=== PATIENT | female | born 1945 | race Caucasian/White ===

== ENCOUNTER 2018-05-28 04:41 | Inpatient (IN) ==
[2018-05-28] MEDS ORDERED: SODIUM CHLORIDE 0.9% 1000ML 500 ML IV ONE ×2 (04:58→06:17)
--- NOTE | 2018-05-28 05:15 | Emergency Department Note ---
ED Provider Note Name: Sheyla Street Age: 72 F Arrives Via: POV Informant: Pt CC: LLQ pain HPI: 72 female arrives for evaluation of LLQ pain. Patient with 48 hours worsening LLQ pain. Notes associated nausea and decreased appetite. Has not had BM in 48 hours which is unusual for her as she usually has one daily. Worse with movement. Better with rest. Notes this has never occurred previously. No trauma. No previous surgeries to abdomen (though notes may have had gallbladder out). She denies fevers, chills, shob, cp, syncope, diarrhea, rashes, back pain, headache, neck pain, leg swelling, nor other symptoms. No medications taken for this. ROS: See above HPI for pertinent positives & negatives. A total of 10 systems reviewed and were otherwise negative. Past Medical History: HTN, Hypothyroid, RA, Past Surgical History: Can't remember, maybe gallbladder Family History: Unsure if abdominal issues in family. Social History: Lives alone, no smoking, no drugs, no alcothol Home Medications: See Below Allergies PNC, Sulfa Physical: Vitals: BP 157/77, P 72, R 20, T 36.9, O2 100RA Exam: GENERAL: Patient is uncomfortable appearing and in moderate distress. EYES: No scleral icterus, unremarkable pupils. ENT: Mucous membranes moist, no nasal congestion. NECK: No masses appreciated, no meningismus, trachea is midline. RESPIRATORY: No dyspnea. Clear to auscultation and equal bilaterally. No wheeze, no rhonchi. CARDIOVASCULAR: Regular rate and rhythm. No murmurs, rubs, gallops appreciated. GASTROINTESTINAL: TTP over left lower quadrant, Abdomen soft, no peritonitis. Bowel sounds positive. No masses appreciated. BACK: No midline tenderness, no CVA tenderness EXTREMITIES: Normal motion all extremities, no cyanosis, no edema. NEUROLOGIC: Alert and oriented, no acute motor or sensory deficits, no focal weakness, cranial nerves grossly intact. SKIN: No rash, no jaundice, no diaphoresis. ED Course: Prior Medical Record, Triage/Nursing Notes, Medications, Allergies reviewed by Me Vital Signs: reviewed and remarkable for HTN Labs: Reviewed and remarkable for Blood in UA, Normal BMP, LFT, Lipase, CBC Interventions: Saline Lock, Fentanyl 50 mcg IV, Zofran 4mg IV, Morphine 6mg IV, NSS bolus 1 L IV, Nss bolus 500mL IV Imaging: [facility] Radiologist interpretation reviewed by me: "CT ABDOMEN & PELVIS With Contrast: 5 mm mid left ureteral stone with moderate hydronephrosis and delayed nephrogram indicating active obstruction No bowel obstruction. Minimal stool in the colon. Radiologist: Indio Nguyen MD" EKG: none Consults: Dr Mark will discuss with Morning hospitalist team Reassessments/Times: Multiple, continued left sided pain Blood pressure: Elevated - [place] to be Situation. Disposition: Hospitalist evaluation Differentials: Diverticulitis, Renal Colic, Colitis, UTI, Pyelonephritis, Perforation, Bowel obstruction amongst other pathologies. Medical Decision Making: Pleasant 72 yr old female with left lower quadrant pain over last few days. Very uncomfortable on arrival. Given Iv narcotics with continued pain. CT with mid ureteral stone on left with moderate hydronephrosis. Continued intractable pain and moderate hydro seems reasonable bringing in. UA with Nitrite but I elan pect this is blood related as does not seem infectious at this time. Cr OK as are other electrolytes. Hospitalist consulted for further management Impression: Left Ureteral Calculus Hydronephrosis of left kidney Intractable Abdominal Pain Dean Love MD Impression & Plan Left ureteral calculus, Hydronephrosis of left kidney, Intractable abdominal pain Past Med/Surg History Social History Feels Safe at Home: Yes Smoking Status: Former smoker Results & Data Vital Signs Vital Signs - 24 hr 05/28/18 04:44 05/28/18 06:07 Temperature 36.9 C Temperature Source Oral Sepsis Recent Fever Within 48 Hours No Sepsis Action Taken by Nursing No Action Required Pulse Rate 72 Pulse Rate [Right Finger] 87 Respiratory Rate 20 20 Blood Pressure 157/77 H Blood Pressure [Left Arm] 163/108 H Blood Pressure Mean 103 Blood Pressure Mean [Left Arm] 126 Blood Pressure Position Sitting Blood Pressure Position [Left Arm] Lying Pulse Oximetry 100 94 Oxygen Delivery Method Room Air Laboratory Data Result diagrams: 05/28/18 05:02 05/28/18 05:02 Lab Results 05/28/18 05/28/18 05/28/18 Range/Units 05:02 05:02 05:25 WBC 8.52 (4.8-10.8) K/uL RBC 4.67 (4.2-5.4) M/uL Hgb 15.6 (12.0-16.0) g/dL POC Hgb (12.0-16.0) g/dl Hct 44.2 (37-47) % POC Hct (37-47) % MCV 94.6 (80-100) fL MCH 33.4 (25-34) pg MCHC 35.3 (32-36) g/dL RDW Std Deviation 44.7 (36.4-46.3) fL RDW Coeff of Zina 13.1 (11.5-14.5) % Plt Count 250 (130-400) K/uL MPV 10.1 (7.4-10.4) fL Immature Gran % (Auto) 0.2 % Neut % (Auto) 68.8 % Lymph % (Auto) 20.7 % [place] % (Auto) 9.4 % Eos % (Auto) 0.5 % Baso % (Auto) 0.4 % Immature Gran # (Auto) 0.02 (0.00-0.02) K/uL Neut # (Auto) 5.87 (1.4-6.5) K/uL Lymph # (Auto) 1.76 (1.2-3.4) K/uL [place] # (Auto) 0.80 H (0.11-0.59) K/uL Eos # (Auto) 0.04 (0-0.5) K/uL Baso # (Auto) 0.03 (0-0.2) K/uL POC Sodium (135-144) mEq/L Sodium 141 (136-145) mmol/L POC Potassium (3.3-5.0) mEq/L Potassium 3.5 (3.5-5.1) mmol/L POC Chloride (101-112) mEq/L Chloride 107 (98-107) mmol/L Carbon Dioxide 24 (21-32) mmol/L POC Total CO2 (24-31) mEq/l Anion Gap 10.0 (3-11) POC Anion Gap (16-25) mmol/L POC BUN (7-18) mg/dl BUN 15 (7-18) mg/dl Creatinine 0.81 (0.6-1.2) mg/dl POC Creatinine (0.6-1.3) mg/dl Est Cr Clr Drug Dosing 50.7 ml/min Est GFR ( Amer) 82.9 Est GFR (Non-Af Amer) 71.5 BUN/Creatinine Ratio 19.1 (10-20) Glucose 112 H (70-99) mg/dl POC Glucose (other) (70-99) mg/dl Calcium 9.1 (8.5-10.1) mg/dl POC Ioniz Calcium Yoly (1.12-1.32) mmol/l Total Bilirubin 1.2 H (0.2-1) mg/dl Direct Bilirubin 0.2 (0-0.2) mg/dl AST 17 (15-37) U/L ALT 24 (12-78) U/L Alkaline Phosphatase 52 (45-117) U/L Total Protein 7.2 (6.4-8.2) gm/dl Albumin 3.9 (3.4-5.0) gm/dl Lipase 92 (73-393) U/L Urine Color Yellow Urine Appearance Cloudy H (Clear) Urine pH 5.0 (4.5-7.5) Ur Specific [place] >= 1.030 (1.000-1.030) Urine Protein 1+ H (Negative) Urine Glucose (UA) Negative (Negative) Urine Ketones Trace H (Negative) Urine Blood 3+ H (Negative) Urine Nitrite Positive H (Negative) Urine Bilirubin Negative (Negative) Urine Urobilinogen Negative (Negative) Ur Leukocyte Esterase Negative (Negative) 05/28/18 Range/Units 05:31 WBC (4.8-10.8) K/uL RBC (4.2-5.4) M/uL Hgb (12.0-16.0) g/dL POC Hgb 15.3 (12.0-16.0) g/dl Hct (37-47) % POC Hct 45 (37-47) % MCV (80-100) fL MCH (25-34) pg MCHC (32-36) g/dL RDW Std Deviation (36.4-46.3) fL RDW Coeff of Zina (11.5-14.5) % Plt Count (130-400) K/uL MPV (7.4-10.4) fL Immature Gran % (Auto) % Neut % (Auto) % Lymph % (Auto) % [place] % (Auto) % Eos % (Auto) % Baso % (Auto) % Immature Gran # (Auto) (0.00-0.02) K/uL Neut # (Auto) (1.4-6.5) K/uL Lymph # (Auto) (1.2-3.4) K/uL [place] # (Auto) (0.11-0.59) K/uL Eos # (Auto) (0-0.5) K/uL Baso # (Auto) (0-0.2) K/uL POC Sodium 141 (135-144) mEq/L Sodium (136-145) mmol/L POC Potassium 3.5 (3.3-5.0) mEq/L Potassium (3.5-5.1) mmol/L POC Chloride 106 (101-112) mEq/L Chloride (98-107) mmol/L Carbon Dioxide (21-32) mmol/L POC Total CO2 21 L (24-31) mEq/l Anion Gap (3-11) POC Anion Gap 18.0 (16-25) mmol/L POC BUN 15 (7-18) mg/dl BUN (7-18) mg/dl Creatinine (0.6-1.2) mg/dl POC Creatinine 0.7 (0.6-1.3) mg/dl Est Cr Clr Drug Dosing ml/min Est GFR ( Amer) Est GFR (Non-Af Amer) BUN/Creatinine Ratio (10-20) Glucose (70-99) mg/dl POC Glucose (other) 120 H (70-99) mg/dl Calcium (8.5-10.1) mg/dl POC Ioniz Calcium [place]oly 1.11 L (1.12-1.32) mmol/l Total Bilirubin (0.2-1) mg/dl Direct Bilirubin (0-0.2) mg/dl AST (15-37) U/L ALT (12-78) U/L Alkaline Phosphatase (45-117) U/L Total Protein (6.4-8.2) gm/dl Albumin (3.4-5.0) gm/dl Lipase (73-393) U/L Urine Color Urine Appearance (Clear) Urine pH (4.5-7.5) Ur Specific [place] (1.000-1.030) Urine Protein (Negative) Urine Glucose (UA) (Negative) Urine Ketones (Negative) Urine Blood (Negative) Urine Nitrite (Negative) Urine Bilirubin (Negative) Urine Urobilinogen (Negative) Ur Leukocyte Esterase (Negative) Administered Medications Ioversol (Optiray 320 100ml) 100 ml IV ONCE PRN PRN Reason: Interaction Checking Stop: 06/01/18 06:04 Last Admin: 05/28/18 06:05 Dose: 93 ml Documented by: [id number] Discontinued Medications Fentanyl Citrate (Fentanyl Citrate) 50 mcg IV NOW STA Stop: 05/28/18 05:24 Last Admin: 05/28/18 05:28 Dose: 50 mcg Documented by: [id number] Sodium Chloride (Nss 1000ml) 500 mls @ 999 mls/hr IV .Q31M ONE Stop: 05/28/18 05:28 Last Infusion: 05/28/18 05:50 Dose: 0 mls/hr Documented by: [id number] Admin: 05/28/18 05:19 Dose: 999 mls/hr Documented by: [id number] Sodium Chloride (Nss 1000ml) 500 mls @ 999 mls/hr IV .Q31M ONE Stop: 05/28/18 06:47 Last Admin: 05/28/18 06:27 Dose: 999 mls/hr Documented by: [id number] Morphine Sulfate (Morphine Sulfate) 4 mg IV NOW STA Stop: 05/28/18 06:02 Last Admin: 05/28/18 06:12 Dose: 4 mg Documented by: [id number] Ondansetron HCl (Zofran) 4 mg IV NOW STA Stop: 05/28/18 05:24 Last Admin: 05/28/18 05:27 Dose: 4 mg Documented by: [id number] Discharge Plan Visit Data Chief Complaint: Abdominal Pain Stated Complaint: ABD PAIN ED Provider: Dean Love Discharge Problem: Left ureteral calculus, Hydronephrosis of left kidney, Intractable abdominal pain Forms Stand Alone Forms: Call Back Authorization, [facility] Prescriptions Prescriptions: No Action valacyclovir [Valtrex] 1 gram Tablet 1,000 mg PO DAILY RF: 0 [id number] Tablet 1 tab PO DAILY RF: 0 ascorbic acid (vitamin C) [Vitamin C] 500 mg Tablet 500 mg PO DAILY RF: 0 folic acid 1 mg Tablet 1 mg PO DAILY RF: 0 lisinopril 5 mg Tablet 5 mg PO DAILY RF: 0 vitamin E 400 unit Capsule 400 unit PO DAILY RF: 0 levothyroxine 112 mcg Tablet 112 mcg PO DAILY RF: 0 cholecalciferol (vitamin D3) [Vitamin D3] 1,000 unit Tablet 1,000 unit PO DAILY RF: 0 [id number]-[id number]-tcw-[id number]-ast [krill oil] 1,233-495-68-80 mg Capsule 1 cap PO DAILY RF: 0 Super B Complex Po Tabs 1 dose PO DAILY RF: 0 methotrexate sodium 2.5 mg Tablet 2.5 mg PO UD RF: 0 prednisone 1 mg Tablet 1 - 4 mg PO UD RF: 0 metronidazole 0.75 % Gel 1 applic TOPICAL BID RF: 0 Referrals Referrals: Daniel Anderson [Primary Care Provider] -
[2018-05-28] MEDS ORDERED: fentaNYL citrate 100 MCG/2 ML VIAL IV STA (05:23)
[2018-05-28] MEDS ORDERED: ONDANSETRON INJ 2 MG/ML 2 ML VIAL IV STA (05:23)
[2018-05-28 05:44] LABS: iSTAT Creatinine 0.7 mg/dl (0.6-1.3); iSTAT Hemoglobin 15.3 g/dl (12.0-16.0); iSTAT Ionized Calcium 1.11 mmol/l (1.12-1.32); iSTAT Potassium 3.5 mEq/L (3.3-5.0)
[2018-05-28 05:44] LABS: Basophils # (auto) 0.03 K/uL (0-0.2); Basophils % (auto) 0.4 %; Eosinophils # (auto) 0.04 K/uL (0-0.5); Eosinophils % (auto) 0.5 %; Hematocrit (blood only) 44.2 % (37-47); Hemoglobin 15.6 g/dL (12.0-16.0); Immature Granulocytes # (auto) 0.02 K/uL (0.00-0.02); Immature Granulocytes % (auto) 0.2 %; Lymphocytes # (auto) 1.76 K/uL (1.2-3.4); Lymphocytes % (auto) 20.7 %; Mean Corpuscular Hgb Conc 35.3 g/dL (32-36); Mean Corpuscular Volume 94.6 fL (80-100); Mean Platelet Volume 10.1 fL (7.4-10.4); Monocytes % (auto) 9.4 %; Neutrophils # (auto) 5.87 K/uL (1.4-6.5); Neutrophils % (auto) 68.8 %; Platelet Count 250 K/uL (130-400); RDW Coefficient of Variation 13.1 % (11.5-14.5); RDW Standard Deviation 44.7 fL (36.4-46.3); Red Blood Count 4.67 M/uL (4.2-5.4); White Blood Count 8.52 K/uL (4.8-10.8)
[2018-05-28] MEDS ORDERED: MoRPHine SULFATE 4 MG/ML 1 ML CARP\\VIAL IV STA (06:01)
[2018-05-28] MEDS ORDERED: IOVERSOL 100ml IV PRN (06:05)
[2018-05-28 06:07] LABS: Albumin Level 3.9 gm/dl (3.4-5.0); BUN Creatinine Ratio 19.1 (10-20); Bilirubin Direct 0.2 mg/dl (0-0.2); Calcium 9.1 mg/dl (8.5-10.1); Creatinine Clr Calc Pharmacy 50.7 ml/min; Est GFR (African American) 82.9; Est GFR (Non-African American) 71.5; Potassium 3.5 mmol/L (3.5-5.1)
[2018-05-28 06:10] LABS: Bilirubin,Total 1.2 mg/dl (0.2-1); Total Protein 7.2 gm/dl (6.4-8.2)
[2018-05-28 06:15] LABS: Appearance Urine Cloudy (Clear); Blood Urine 3+ (Negative); Glucose Urine UA Negative (Negative); Ketones Urine Trace (Negative); Leukocyte Esterase Urine Negative (Negative); Nitrite Urine Positive (Negative); Protein Urine 1+ (Negative); Specific Gravity Urine >= 1.030 (1.000-1.030); Urobilinogen Urine Negative (Negative)
[2018-05-28 06:17] LABS: Bilirubin Urine Negative (Negative); Color Urine Yellow; Ictotest Urine Negative (Negative)
--- NOTE | 2018-05-28 07:09 | CT Scan Report ---
CT abd pelvis IV con only CLINICAL HISTORY: 72 years-old Female presenting with LLQ Pain, no BM for 3 days. TECHNIQUE: Multidetector CT of the abdomen and pelvis was performed after the administration of intra venous contrast. IV contrast: Optiray 320. One or more dose lowering techniques were used consistent with the principles of ALARA (as low as reasonably achievable), including automatic exposure control, mA or kV adjustment to individual patient size, and/or use of iterative reconstruction. COMPARISON: None. CT DOSE (mGy.cm): The estimated cumulative dose is 424.30 mGy.cm. FINDINGS: [employer] topogram: Cholecystectomy clips noted. Lung bases: Normal heart size. Coronary artery and aortic valve calcification. No pericardial or pleu ral effusion. Allowing for respiratory motion artifact, minimal dependent changes likely atelectasis. Liver: Normal morphology. No liver lesion. Patent hepatic vasculature. Biliary: Mild biliary ductal prominence likely a reservoir effect in the post cholecystectomy state. Gallbladder surgically absent. Pancreas: Normal. Spleen: Normal. Adrenal glands: Normal. Kidneys and ureters: Moderate left elbow calyectasis with distention of the left ureter and left urot helial thickening aerated there is enlargement of left kidney and slight delayed perfusion alternativ es to the right. Moderate left perinephric fat infiltration. An obstructing 6 mm calculus is impacted in the proximal left ureter at the level of L3-4. No additional or ureteral calculus. Well-defined s ubcentimeter hypodense lesion at the lower pole the left kidney likely cyst. Additional cyst evident in the right kidney. No additional renal calculus. Bladder: Incompletely evaluated secondary to underdistention. No bladder calculus. Pelvic organs: Uterus and ovaries normal. Bowel: Normal. No bowel obstruction. Peritoneal cavity: No free fluid or intraperitoneal gas. Lymph nodes: No enlarged lymph nodes in the abdomen or pelvis. Vasculature: Atherosclerosis of the normal caliber abdominal aorta. IVC patent. Abdominal wall: Abdominal wall laxity asymmetrically on the right. Postsurgical changes of the anteri or abdominal wall may be present in the infraumbilical region. Musculoskeletal: Minimal degenerative changes of the spine. IMPRESSION: 1. Obstructing 6 mm proximal left ureteral calculus at the level of L3-4 with resultant moderate lef t hydroureteronephrosis. No additional renal or ureteral calculus. Electronically signed by: Jared Metz M.D. 05/28/2018 7:07 AM
[2018-05-28] MEDS ORDERED: MoRPHine SULFATE 4 MG/ML 1 ML CARP\\VIAL IV PRN ×2 (07:42→09:14)
[2018-05-28] MEDS ORDERED: SODIUM CHLORIDE 0.9% 1000ML 1,000 ML IV SCH (07:45)
--- NOTE | 2018-05-28 08:20 | History & Physical Report ---
Date of Service May 28, 2018 Assessment & Plan (1) Left ureteral calculus: New onset left ureteral calculus measuring approximately [address] scan. Pain management with morphine antiemetics as needed. Flomax was added. Continue IV fluids and keep n.p.o. pending urology assessment. No evidence of urinary tract infection or a high at this time. Will trend BMP and monitor urine culture results. (2) Hydronephrosis of left kidney: Likely secondary to obstructive uropathy, plan as above. (3) Rheumatoid arthritis: Methotrexate and prednisone per outpatient regimen. (4) Hypertension: Continue lisinopril per home regimen. Some noted blood pressure elevation likely secondary to pain. Continue aggressive pain control efforts. (5) Rosacea: Continue MetroGel per outpatient regimen to cheeks. (6) DVT prophylaxis: SCDs for now pending possible procedure Full code Disposition-to floor Gabby Nieto DO [facility] History of Present Illness Chief Complaint: Left flank pain times 2 days. Primary Care Provider: Daniel Anderson 72-year-old female presents with left flank pain with radiation to the groin times 2 days. She reports waking up yesterday morning with this pain and stayed home hoping it would resolve, however, it did not and got worse. She denies any hematuria, urinary urgency, incomplete voiding or other dysuria. She has not had a history of kidney stone in the past. She denies any fevers, chills. She reports some constipation which is abnormal for her since Monday, 4 days ago. She otherwise denies any chest pain, shortness of breath, recent illnesses. Recent changes of medication include a decrease in her methotrexate every Monday from 12.5 mg to 10 mg. She had Prolia for osteoporosis that was administered last week. She is also stepped down in her prednisone from 5 mg daily to 40 mg daily in an effort to wean herself off medications for rheumatoid arthritis. Allergies Allergy/AdvReac Type Severity Reaction Status Date / Time Penicillins Allergy Unknown HIVES,SPLOT Verified 05/28/18 07:07 MALIA Sulfa (Sulfonamide Allergy Unknown UNKNOWN Verified 05/28/18 07:07 Antibiotics) levofloxacin [From Levaquin] AdvReac Unknown nausea and Verified 05/28/18 09:22 vomiting Home Medications Home Medications Medication Instructions Recorded Confirmed Type Super B Complex Po Tabs 1 dose PO DAILY 05/28/18 05/28/18 History ascorbic acid (vitamin C) [Vitamin 500 mg PO DAILY 05/28/18 05/28/18 History C] [id number]-pwkhuxakc-[id number] 1 tab PO DAILY 05/28/18 05/28/18 History cholecalciferol (vitamin D3) 1,000 unit PO DAILY 05/28/18 05/28/18 History [Vitamin D3] folic acid 1 mg PO SUMOTUWETHFR@0900 05/28/18 05/28/18 History mhcwk-wk-7-tiu-rpu-lzvywgv-ast 1 cap PO DAILY 05/28/18 05/28/18 History [krill oil] levothyroxine 112 mcg PO DAILYBB 05/28/18 05/28/18 History lisinopril 5 mg PO DAILY 05/28/18 05/28/18 History methotrexate sodium 2.5 mg PO UD 05/28/18 05/28/18 History metronidazole 1 applic TOPICAL BID 05/28/18 05/28/18 History milk thistle seed extract 140 mg PO BID 05/28/18 05/28/18 History prednisone 4 mg PO DAILY 05/28/18 05/28/18 History valacyclovir [Valtrex] 1,000 mg PO DAILY PRN 05/28/18 05/28/18 History vitamin E 400 unit PO DAILY 05/28/18 05/28/18 History Past Med/Surg History Medical History Aortic valve sclerosis Chronic sinusitis Female stress incontinence Hypertension Hypothyroidism Reflux esophagitis Rheumatoid arthritis Surgical History Status post appendectomy Status post cholecystectomy Family History Father Liver cancer Son Pancreatic cancer Social History Preferred Language: Luxembourgish Communication Ability: Effective [place] Required: No Beliefs That Will Affect Care: None Current Living Situation: Alone Other Information That Helps Us Care for You: No Feels Safe at Home: Yes Smoking Status: Former smoker Hx Alcohol Use: No Hx Substance Use: No Review of Systems At least ten systems were reviewed and negative except as indicated in HPI above. Physical Exam Vital Signs (Past 24 Hours): Last Vital Signs Temp 36.9 C 05/28/18 04:44 Pulse 87 05/28/18 06:07 Resp 20 05/28/18 06:07 BP 163/108 H 05/28/18 06:07 Pulse Ox 94 05/28/18 06:07 CONSTITUTIONAL: WNWD, vitals as above, generally well-appearing EYES: normal conjuctivae, no scleral icterus ENT: oropharynx clear, mucous memories moist RESPIRATORY: normal respiratory effort CARDIOVASCULAR: regular rate and rhythm, 3-6 systolic ejection murmur across precordium, no gallops or rubs, no JVD, no peripheral edema GASTROINTESTINAL: normal bowel sounds, tender to palpation with guarding in left lower quadrant, no left CVA tenderness, soft nondistended MUSCULOSKELETAL: strength 5/5 throughout, head is normocephalic and atraumatic SKIN: warm and dry NEUROLOGIC: CN 2-12 grossly intact, no sensory deficit, normal cognition, no gross focal deficit PSYCHIATRIC: alert cooperative and oriented to person, place and time Results & Data Laboratory Results Short CBC 05/28/18 Range/Units 05:02 WBC 8.52 (4.8-10.8) K/uL Hgb 15.6 (12.0-16.0) g/dL Hct 44.2 (37-47) % Plt Count 250 (130-400) K/uL BMP 05/28/18 05:02 Sodium 141 Potassium 3.5 Chloride 107 Carbon Dioxide 24 BUN 15 Creatinine 0.81 Glucose 112 H Calcium 9.1 Liver Function 05/28/18 Range/Units 05:02 Total Bilirubin 1.2 H (0.2-1) mg/dl Direct Bilirubin 0.2 (0-0.2) mg/dl AST 17 (15-37) U/L ALT 24 (12-78) U/L Alkaline Phosphatase 52 (45-117) U/L Albumin 3.9 (3.4-5.0) gm/dl Urine 05/28/18 Range/Units 05:25 Urine Color Yellow Urine Appearance Cloudy H (Clear) Urine pH 5.0 (4.5-7.5) Ur Specific [place] >= 1.030 (1.000-1.030) Urine Protein 1+ H (Negative) Urine Glucose (UA) Negative (Negative) Diagnostic Findings CT abdomen pelvis with IV contrast: IMPRESSION: 1. Obstructing 6 mm proximal left ureteral calculus at the level of L3-4 with resultant moderate left hydroureteronephrosis. No additional renal or ureteral calculus. Medications Administered Current Inpatient Medications Sodium Chloride (Nss 1000ml) 1,000 mls @ 80 mls/hr IV .[id number] MARIE Stop: 06/27/18 07:44 Ioversol (Optiray 320 100ml) 100 ml IV ONCE PRN PRN Reason: Interaction Checking Stop: 06/01/18 06:04 Last Admin: 05/28/18 06:05 Dose: 93 ml Documented by: Morphine Sulfate (Morphine Sulfate) 4 mg IV Q30M PRN PRN Reason: Pain Stop: 06/11/18 07:41 Code Status & VTE Plan Code Status Full code VTE Prophylaxis Plan VTE Prophylaxis will be ordered: Yes Critical Care Time Critical Care Time: No
[2018-05-28] MEDS ORDERED: ACETAMINOPHEN 325 MG TAB PO PRN (09:14)
[2018-05-28] MEDS ORDERED: POLYETHYLENE (MIRALAX) 17 GM PACK PO PRN (09:14)
[2018-05-28] MEDS ORDERED: ONDANSETRON INJ 2 MG/ML 2 ML VIAL IV PRN ×2 (09:14→12:18)
[2018-05-28] MEDS ORDERED: OXYCODONE HCL IR 5 MG TAB (IMMEDIATE RELEASE) PO PRN (09:14)
[2018-05-28] MEDS ORDERED: SENNA 8.8 MG/5 ML UDP PO ONE (09:30)
[2018-05-28] MEDS: SODIUM CHLORIDE 0.9% 1000ML 1,000 ML IV SCH ×2 (09:34→18:31)
[2018-05-28] MEDS ORDERED: TAMSULOSIN HCL 0.4 MG CAP PO SCH (10:45)
[2018-05-28] MEDS ORDERED: MIDAZOLAM HCL 1 MG/ML 2ML VIAL ONE (12:09)
[2018-05-28] MEDS ORDERED: LIDOCAINE HCL 2% 2 ML VIAL/AMP(20MG/ML) INFIL ONE (12:09)
[2018-05-28] MEDS ORDERED: PROPOFOL IV EMULSION 10 MG/ML 20 ML VIAL IV ONE (12:09)
[2018-05-28] MEDS ORDERED: fentaNYL citrate 100 MCG/2 ML VIAL ONE (12:09)
[2018-05-28] MEDS ORDERED: IOTHALAMATE MEGLUMINE II 17.2% 250 ML VIAL ONE (12:11)
--- NOTE | 2018-05-28 12:12 | Anesthesiology Consultation ---
Date of Service May 28, 2018 Assessment & Plan Chart Review Chart Review: Acceptable Risk for Surgery and Patient NOT seen in Pre Admission Testing Consults Requested none ASA [id number] Proposed Anesthesia Anesthesia Type: MAC Risk / Benefits Reviewed With: PT / POA / Parent / Guardian, Accepts Plan and Informed Consent Obtained NPO Date Last Intake of Fluids: 05/28/18 Time Last Intake of Fluids: 04:00 Last Intake of Fluids Comment: Sips of water with medication Date Last Intake of Solids: 05/28/18 Time Last Intake of Solids: 21:00 History Surgery Operation Date: 05/28/18 12:00 Proposed Procedures p Cystoscopy Retrograde, Left Stent Insertion - Lanre Berrios MD Height/Weight Height: 1.5 m Weight: 66.9 kg Allergies Allergy/AdvReac Type Severity Reaction Status Date / Time Penicillins Allergy Unknown HIVES,SPLOT Verified 05/28/18 07:07 MALIA Sulfa (Sulfonamide Allergy Unknown UNKNOWN Verified 05/28/18 07:07 Antibiotics) levofloxacin [From Levaquin] AdvReac Unknown nausea and Verified 05/28/18 09:22 vomiting Medications Home Medications Medication Instructions Recorded Confirmed Last Taken Super B Complex Po Tabs 1 dose PO DAILY 05/28/18 05/28/18 Unknown ascorbic acid (vitamin C) [Vitamin 500 mg PO DAILY 05/28/18 05/28/18 Unknown C] cmtikja-tpfnkvyrn-yjdv 1 tab PO DAILY 05/28/18 05/28/18 Unknown cholecalciferol (vitamin D3) 1,000 unit PO DAILY 05/28/18 05/28/18 Unknown [Vitamin D3] folic acid 1 mg PO SUMOTUWETHFR@0900 05/28/18 05/28/18 Unknown pgjbx-tm-[id number]-onh-ovf-lugwfgb-ast 1 cap PO DAILY 05/28/18 05/28/18 Unknown [krill oil] levothyroxine 112 mcg PO DAILYBB 05/28/18 05/28/18 Unknown lisinopril 5 mg PO DAILY 05/28/18 05/28/18 Unknown methotrexate sodium 2.5 mg PO UD 05/28/18 05/28/18 Unknown metronidazole 1 applic TOPICAL BID 05/28/18 05/28/18 Unknown milk thistle seed extract 140 mg PO BID 05/28/18 05/28/18 Unknown prednisone 4 mg PO DAILY 05/28/18 05/28/18 Unknown valacyclovir [Valtrex] 1,000 mg PO DAILY PRN 05/28/18 05/28/18 Unknown vitamin E 400 unit PO DAILY 05/28/18 05/28/18 Unknown Active Medications Generic Name Dose Route Start Last Admin Trade Name Freq PRN Reason Stop Dose Admin Sodium Chloride 1,000 mls @ 125 mls/hr 05/28/18 09:15 05/28/18 09:34 Nss 1000ml IV 06/27/18 09:14 125 mls/hr .Q8H MARIE Administration Ioversol 100 ml 05/28/18 06:05 05/28/18 06:05 Optiray 320 100ml IV 06/01/18 06:04 93 ml ONCE PRN Administration Interaction Checking Morphine Sulfate 4 mg 05/28/18 09:14 05/28/18 10:41 Morphine Sulfate IV 06/11/18 09:13 4 mg Q4H PRN Administration Pain Tamsulosin HCl 0.4 mg 05/28/18 10:45 05/28/18 12:05 Flomax PO 06/27/18 10:44 0.4 mg DAILY MARIE Administration Past Medical History Medical History Aortic valve sclerosis Chronic sinusitis Female stress incontinence Hypertension Hypothyroidism Reflux esophagitis Rheumatoid arthritis Denies any GERD symptoms or recent n/v No CP, SOB Not symptomatic from murmur Past Family History Family History Father Liver cancer Son Pancreatic cancer Past Surgical History Surgical History Status post appendectomy Status post cholecystectomy Past Anesthesia History No Hx of Anesthesia Complications and No Family Hx of Anesthesia Complications History of PONV No Motion Sickness Screening History of Motion Sickness: No Social History Smoking Status: Former smoker Hx Alcohol Use: No Hx Substance Use: No substance use type: marijuana (Medical marijuana) Last Used Substance: Days (ago) (Yesterday) Exercise / Class Metabolic Activity II 4-5 Yardwork/Stairs/Walk up hill Physical Exam Vital Signs Last Vital Signs Temp 37.1 C 05/28/18 09:10 Pulse 70 05/28/18 09:10 Resp 16 05/28/18 09:10 BP 167/87 H 05/28/18 09:10 Pulse Ox 95 05/28/18 09:10 ENMT Mouth: + dentures (Lower partial); no TMJ abnormality and no TMJ clicking Thyromental Distance: < 3.5 Finger Breadths Mallampati Class: III Neck + shortened thyromental distance; neck extension not limited Respiratory Auscultation: lungs clear to auscultation bilaterally Cardiovascular Rate/Rhythm: regular rate and regular rhythm Heart Sounds: + murmur (II/) Musculoskeletal Spine: normal cervical ROM and no pain with cervical ROM Psychiatric Orientation: alert and oriented x 3 Testing Laboratory Results 05/28/18 05:02 05/28/18 05:02 Urine Color Yellow 05/28/18 05:25 Urine Appearance Cloudy (Clear) H 05/28/18 05:25 Urine pH 5.0 (4.5-7.5) 05/28/18 05:25 Ur Specific [place] >= 1.030 (1.000-1.030) 05/28/18 05:25 Urine Protein 1+ (Negative) H 05/28/18 05:25 Urine Glucose (UA) Negative (Negative) 05/28/18 05:25 Urine Ketones Trace (Negative) H 05/28/18 05:25 Urine Nitrite Positive (Negative) H 05/28/18 05:25 Ur Leukocyte Esterase Negative (Negative) 05/28/18 05:25 05/28/18 05:31 POC Glucose (other) 120 H
[2018-05-28] MEDS ORDERED: ePHEDrine sulfate 50 MG/ML AMP IV PRN (12:18)
[2018-05-28] MEDS ORDERED: ATROPINE SULFATE 0.1 MG/ML 10ML SYR IV PRN (12:18)
[2018-05-28] MEDS ORDERED: PHENYLEPHRINE 100MCG/ML 5ML SYR IV PRN (12:18)
[2018-05-28] MEDS ORDERED: fentaNYL citrate 100 MCG/2 ML VIAL IV PRN (12:18)
--- NOTE | 2018-05-28 12:20 | Urology Consultation ---
Date of Consultation May 28, 2018 Assessment & Plan (1) Left ureteral calculus: 72yo F with 6mm L proximal ureteral stone, moderate hydro. Cr within normal limits. afebrile, VSS except hypertension due to pain UA nitrate positive, pt asymptomatic of UTI symptoms. Intractable pain requiring IV pain medication, acutely tender upon exam. Findings reviewed with Dr. Berrios. Given her intractable pain requiring IV pain control the context of an obstructing 6mm L ureteral stone, will proceed with OR for cysto, L RPG and L stent placement. Risks and benefits to be reviewed with patient by Dr. Berrios. OR notified. Will cover with IV ciprofloxacin preoperatively. Inquired listed adverse reaction to levaquin with patient, patient is unfamiliar with this. States she is only known to have allergy to sulfa and PCN. Denies hx of cardiac or lung problems, denies previous difficulty with anesthesia. Definitive stone management will be addressed as an outpatient. History of Present Illness Reason for Consultation: Ureteral stone Attending Physician: Gabby Nieto DO History of Present Illness 72yo F with Hx of HTN and RA presents to ED with cheif complaint of L flank pain and constipation x [address] imaging reveals 6mm L proximal ureteral calculi with moderate hydro, no additional renal or ureteral stones. Pain modestly controlled with IV pain medication. Never previously received evaluation. No previous hx stones. No hematuria, dysuria, urgency or frequency. Nausea earlier but controlled now. Denies emesis. Denies fevers/chillls. Allergies Allergy/AdvReac Type Severity Reaction Status Date / Time Penicillins Allergy Unknown HIVES,SPLOT Verified 05/28/18 07:07 MALIA Sulfa (Sulfonamide Allergy Unknown UNKNOWN Verified 05/28/18 07:07 Antibiotics) levofloxacin [From Levaquin] AdvReac Unknown nausea and Verified 05/28/18 09:22 vomiting Home Medications Home Medications Medication Instructions Recorded Confirmed Type Super B Complex Po Tabs 1 dose PO DAILY 05/28/18 05/28/18 History ascorbic acid (vitamin C) [Vitamin 500 mg PO DAILY 05/28/18 05/28/18 History C] rznrpfc-wyunvqzdr-afia 1 tab PO DAILY 05/28/18 05/28/18 History cholecalciferol (vitamin D3) 1,000 unit PO DAILY 05/28/18 05/28/18 History [Vitamin D3] folic acid 1 mg PO SUMOTUWETHFR@0900 05/28/18 05/28/18 History ypcvl-uf-8-zpr-uyf-ashlone-ast 1 cap PO DAILY 05/28/18 05/28/18 History [krill oil] levothyroxine 112 mcg PO DAILYBB 05/28/18 05/28/18 History lisinopril 5 mg PO DAILY 05/28/18 05/28/18 History methotrexate sodium 2.5 mg PO UD 05/28/18 05/28/18 History metronidazole 1 applic TOPICAL BID 05/28/18 05/28/18 History milk thistle seed extract 140 mg PO BID 05/28/18 05/28/18 History prednisone 4 mg PO DAILY 05/28/18 05/28/18 History valacyclovir [Valtrex] 1,000 mg PO DAILY PRN 05/28/18 05/28/18 History vitamin E 400 unit PO DAILY 05/28/18 05/28/18 History Patient History Medical History Aortic valve sclerosis Chronic sinusitis Female stress incontinence Hypertension Hypothyroidism Reflux esophagitis Rheumatoid arthritis Surgical History Status post appendectomy Status post cholecystectomy Family History Father Liver cancer Son Pancreatic cancer Social History Preferred Language: Afghan Communication Ability: Effective 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 Beliefs That Will Affect Care: None Current Living Situation: Alone Other Information That Helps Us Care for You: No Feels Safe at Home: Yes Smoking Status: Former smoker Hx Alcohol Use: No Hx Substance Use: No Review of Systems Constitutional: no fever, no chills and no body aches Eyes: no problem reported Ear, Nose, Mouth, Throat: no ear pain and no tinnitus Respiratory: no cough and no dyspnea Cardiovascular: no chest pain Gastrointestinal: no abdominal pain, no early satiety, no nausea and no vomiting Genitourinary (Female): + flank pain (left); no dysuria, no urinary hesitancy and no urinary incontinence Musculoskeletal: + back pain (left flank) Integumentary: no acne and no rash Neurologic: no gait abnormality, no falls and no paralysis Psychiatric: no behavioral changes, no depression and no paranoia Endocrine: no fatigue and no polydipsia Hematologic / Lymphatic: no easy bleeding and no coagulopathy Allergy / Immunological: no GI upset with certain foods Physical Exam Vital Signs (Past 24 Hours): Last Vital Signs Temp 37.1 C 05/28/18 09:10 Pulse 70 05/28/18 09:10 Resp 16 05/28/18 09:10 BP 167/87 H 05/28/18 09:10 Pulse Ox 95 05/28/18 09:10 Constitutional: no acute distress Eyes: no eyelid abnormality ENMT: Ears: no hearing impairment, no TM abnormality and able to visualize TM Neck: trachea midline; no neck crepitus Respiratory: no respiratory distress and does not use accessory muscles Cardiovascular: Rate/Rhythm: + abnormal rate Vessels: no JVD Chest (Breasts): Chest: no mass Gastrointestinal (Abdomen): Inspection/Auscultation: abdomen not distended Percussion/Palpation: + abdomen tender (llq) and abdomen soft Musculoskeletal: no cyanosis or clubbing, extremities motor strength 5/5 Skin: no rashes and no ulcers Neurologic: awake; not obtunded Psychiatric: Orientation: alert and oriented x 3 Eye Contact: good eye contact Genitourinary: + CVA tenderness (left) Lymphatic: no cervical or axillary lymphadenopathy Results & Data Laboratory Results Laboratory Results - last 48 hr 05/28/18 05/28/18 05/28/18 05:02 05:02 05:25 WBC 8.52 RBC 4.67 Hgb 15.6 POC Hgb Hct 44.2 POC Hct MCV 94.6 MCH 33.4 MCHC 35.3 RDW Std Deviation 44.7 RDW Coeff of Zina 13.1 Plt Count 250 MPV 10.1 Immature Gran % (Auto) 0.2 Neut % (Auto) 68.8 Lymph % (Auto) 20.7 Calloway % (Auto) 9.4 Eos % (Auto) 0.5 Baso % (Auto) 0.4 Immature Gran # (Auto) 0.02 Neut # (Auto) 5.87 Lymph # (Auto) 1.76 Calloway # (Auto) 0.80 H Eos # (Auto) 0.04 Baso # (Auto) 0.03 POC Sodium Sodium 141 POC Potassium Potassium 3.5 POC Chloride Chloride 107 Carbon Dioxide 24 POC Total CO2 Anion Gap 10.0 POC Anion Gap POC BUN BUN 15 Creatinine 0.81 POC Creatinine Est Cr Clr Drug Dosing 50.7 Est GFR ( Amer) 82.9 Est GFR (Non-Af Amer) 71.5 BUN/Creatinine Ratio 19.1 Glucose 112 H POC Glucose (other) Calcium 9.1 POC Ioniz Calcium Yoly Total Bilirubin 1.2 H Direct Bilirubin 0.2 AST 17 ALT 24 Alkaline Phosphatase 52 Total Protein 7.2 Albumin 3.9 Lipase 92 Urine Color Yellow Urine Appearance Cloudy H Urine pH 5.0 Ur Specific [place] >= 1.030 Urine Protein 1+ H Urine Glucose (UA) Negative Urine Ketones Trace H Urine Blood 3+ H Urine Nitrite Positive H Urine Bilirubin Negative Urine Urobilinogen Negative Ur Leukocyte Esterase Negative 05/28/18 05:31 WBC RBC Hgb POC Hgb 15.3 Hct POC Hct 45 MCV MCH MCHC RDW Std Deviation RDW Coeff of Zina Plt Count MPV Immature Gran % (Auto) Neut % (Auto) Lymph % (Auto) Calloway % (Auto) Eos % (Auto) Baso % (Auto) Immature Gran # (Auto) Neut # (Auto) Lymph # (Auto) Calloway # (Auto) Eos # (Auto) Baso # (Auto) POC Sodium 141 Sodium POC Potassium 3.5 Potassium POC Chloride 106 Chloride Carbon Dioxide POC Total CO2 21 L Anion Gap POC Anion Gap 18.0 POC BUN 15 BUN Creatinine POC Creatinine 0.7 Est Cr Clr Drug Dosing Est GFR ( Amer) Est GFR (Non-Af Amer) BUN/Creatinine Ratio Glucose POC Glucose (other) 120 H Calcium POC Ioniz Calcium Yoly 1.11 L Total Bilirubin Direct Bilirubin AST ALT Alkaline Phosphatase Total Protein Albumin Lipase Urine Color Urine Appearance Urine pH Ur Specific [place] Urine Protein Urine Glucose (UA) Urine Ketones Urine Blood Urine Nitrite Urine Bilirubin Urine Urobilinogen Ur Leukocyte Esterase
[2018-05-28] MEDS ORDERED: CIPROFLOXACIN 400 MG/200 ML BAG IV STA (12:22)
[2018-05-28] MEDS ORDERED: CIPROFLOXACIN 400MG / 200ML D5W IV ONE (12:39)
--- NOTE | 2018-05-28 12:50 | Operative Report ---
Post Operative Report Pre & Post Diagnosis Operation Date: 05/28/18 12:00 Preoperative diagnosis: Left 6 mm proximal ureteral stone with intractable renal colic. Postoperative diagnosis: Same. Procedure: Cystoscopy, left retrograde pyelography, left ureteral stent placement. Surgeon: Dr. Lanre Berrios. Anesthesia: Monitored anesthesia care with sedation. Drains left in place: 6 Ghanaian 24 cm double-J ureteral stent Findings: Good stent position after completion of case. Procedure Operation Date: 05/28/18 12:00 Brief history: Patient is a pleasant 72-year-old female admitted to the hospital for intractable colic from her first stone episode. CT scan images are personally reviewed demonstrating a left 6 mm proximal ureteral stone with hydronephrosis. Her pain is poorly controlled with medication and after discussion of risks and benefits of various forms of management she is decided upon acute decompression with cystoscopy and left ureteral stent placement to manage her disease. Please see urology consultation for further details. Intravenous ciprofloxacin is provided for antibiotic coverage. SCDs were used for DVT prophylaxis. Procedure: Patient was properly identified and brought into the operative suite after identification of appropriate consent of the chart. Monitored anesthesia care with sedation was initiated and patient was prepped and draped in standard fashion for this procedure. Full timeout procedure was followed. A 22 Ghanaian rigid cystoscope was introduced into the bladder under direct visualization bladder was surveyed in its entirety demonstrating no intravesical lesions, papillary masses or calculi. Ureteral orifices were noted to be in the normal anatomical location bilaterally. Left-sided ureteral orifice was visualized and addressed with a 5 Ghanaian open-ended catheter and gentle retrograde pyelography was performed. This demonstrated a normal distal ureter and slightly dilated proximal ureter and collecting system. Significant bowel gas was present and contrast was present in the bladder on initiation of the case. Sensor tip wire was advanced up to the level of the left renal pelvis followed by a 6 Ghanaian 26 cm double-J ureteral stent with a full coil being present at the level of the renal pelvis on fluoroscopy and a full coil under direct visualization within the bladder. Hydronephrotic drip of slightly cloudy urine was appreciated. Bladder was drained and cystoscope was removed. Anesthesia was reversed and patient was transferred to the recovery room in stable condition. She tolerated the procedure well. Follow-up CARE: Patient will be readmitted to the floor to the medical service. Diet may be advanced. If she is feeling well she can be discharged home this evening with plan for outpatient follow-up for definitive stone management. Consider a short course of ciprofloxacin for postoperative coverage. Would also consider Pyridium and Percocet. Surgeon Lanre Berrios MD [employer] None Estimated Blood Loss 0 Findings Consistent with Post-Op Diagnosis Specimens None Description of Procedure Cystoscopy, left retrograde pyelography, left ureteral stent placement I attest to the content of the Intraoperative Record and any orders documented therein. Any exceptions are noted below.
--- NOTE | 2018-05-28 13:49 | Anesthesiology Progress Note ---
Date of Service May 28, 2018 Anesthesia Post Procedure Vital Signs Vital Signs: Temp Pulse Pulse Pulse Resp BP BP 05/28/18 13:40 67 16 05/28/18 13:30 36.7 C 76 16 05/28/18 13:20 75 16 05/28/18 13:12 36.8 C 85 16 05/28/18 12:33 36.8 C 70 20 135/71 05/28/18 09:10 37.1 C 70 16 167/87 H 05/28/18 08:34 73 18 137/68 05/28/18 06:07 87 20 163/108 H 05/28/18 04:44 36.9 C 72 20 157/77 H BP Pulse Ox 05/28/18 13:40 118/65 96 05/28/18 13:30 108/67 95 05/28/18 13:20 116/58 L 99 05/28/18 13:12 126/61 99 05/28/18 12:33 93 05/28/18 09:10 95 05/28/18 08:34 94 05/28/18 06:07 94 05/28/18 04:44 100 Pain Intensity Left Abdomen: Pain Intensity: 8 Notes Mental Status: alert / awake / arousable Patient Amnestic to Procedure: Yes Nausea / Vomiting: adequately controlled Pain: adequately controlled Airway Patency, RR, SpO2: stable & adequate BP & HR: stable & adequate Hydration State: stable & adequate Anesthetic Complications: no major complications apparent
[2018-05-28] MEDS ORDERED: PHENAZOPYRIDINE HCL 200 MG TAB PO PRN (14:00)
--- NOTE | 2018-05-28 14:41 | Fluoroscopy Report ---
FL retrograde includes kub CLINICAL HISTORY: 72 years-old Female presenting with left cystoscopy/retrograde/stents. TECHNIQUE: 5 fluoroscopic image(s) recorded as part of an intraoperative procedure. COMPARISON: CT performed earlier today. FINDINGS/IMPRESSION: The bladder was opacified with contrast. A cystoscope was inserted and the left ureter was opacified with contrast noted to be nondistended. Mild irregularity of the proximal ureteral mucosa may be pres ent at the site of the prior obstructing calculus. Mild left pelvocaliectasis. Subsequently a guidewi re was inserted into the upper pole calyx and a stent placed into the left urinary collecting system. Please see surgical report for further details. Fluoroscopy dosage (mGy): 4.29. Fluoroscopy time: 23.3 seconds. Number or time of high level fluoroscopy (HLF), digital spot, or digital subtraction images: 0. Electronically signed by: Jared Metz M.D. 05/28/2018 2:40 PM
--- NOTE | 2018-05-28 15:32 | XRay Report ---
KUB HISTORY: Follow-up study in a patient with nephrolithiasis stone disease COMPARISON: CT abdomen and pelvis of same day FINDINGS: The bowel gas pattern is non-obstructive. There is no organomegaly. Left ureteral stent ap pears to be in satisfactory positioning. Retained contrast is noted within the decompressed urinary b ladder lumen. No definite nephrolithiasis or ureteral calculi identified. Pelvic basin calcifications are suggestive of probable phleboliths. Cholecystectomy. Degenerative changes of the spine, pelvis a nd hips. No pneumoperitoneum or pneumatosis. No fracture. IMPRESSION: Left ureteral stent appears to be in satisfactory positioning. No definite nephrolithiasis or uretera l calculi identified. Electronically signed by: Sav Ramírez M.D. 05/28/2018 3:30 PM
--- NOTE | 2018-05-28 19:35 | Discharge Summary ---
Date of Service May 28, 2018 Admission HPI Per Admitting Provider 72-year-old female presents with left flank pain with radiation to the groin times 2 days. She reports waking up yesterday morning with this pain and stayed home hoping it would resolve, however, it did not and got worse. She denies any hematuria, urinary urgency, incomplete voiding or other dysuria. She has not had a history of kidney stone in the past. She denies any fevers, chills. She reports some constipation which is abnormal for her since Monday, 4 days ago. She otherwise denies any chest pain, shortness of breath, recent illnesses. Recent changes of medication include a decrease in her methotrexate every Monday from 12.5 mg to 10 mg. She had Prolia for osteoporosis that was administered last week. She is also stepped down in her prednisone from 5 mg daily to 40 mg daily in an effort to wean herself off medications for rheumatoid arthritis. Admission Exam Per Admitting Provider Temp 36.9 C 05/28/18 04:44 Pulse 87 05/28/18 06:07 Resp 20 05/28/18 06:07 BP 163/108 H 05/28/18 06:07 Pulse Ox 94 05/28/18 06:07 CONSTITUTIONAL: WNWD, vitals as above, generally well-appearing EYES: normal conjuctivae, no scleral icterus ENT: oropharynx clear, mucous memories moist RESPIRATORY: normal respiratory effort CARDIOVASCULAR: regular rate and rhythm, 3-6 systolic ejection murmur across precordium, no gallops or rubs, no JVD, no peripheral edema GASTROINTESTINAL: normal bowel sounds, tender to palpation with guarding in left lower quadrant, no left CVA tenderness, soft nondistended MUSCULOSKELETAL: strength 5/5 throughout, head is normocephalic and atraumatic SKIN: warm and dry NEUROLOGIC: CN 2-12 grossly intact, no sensory deficit, normal cognition, no gross focal deficit PSYCHIATRIC: alert cooperative and oriented to person, place and yumiko Principal Diagnosis ureteral stone with colic Discharge Data Allergies Allergy/AdvReac Type Severity Reaction Status Date / Time Penicillins Allergy Unknown HIVES,SPLOT Verified 05/28/18 07:07 MALIA Sulfa (Sulfonamide Allergy Unknown UNKNOWN Verified 05/28/18 07:07 Antibiotics) levofloxacin [From Levaquin] AdvReac Unknown nausea and Verified 05/28/18 09:22 vomiting Consultations 05/28/18 06:40 ED Decision to Admit Stat 05/28/18 09:14 Consult Urology Routine Procedures Performed Operation Date: 05/28/18 12:00 Actual Procedures p Cystoscopy, Left Retrograde, Left Stent Insertion(Left) - Lanre Berrios MD Ordered Studies 05/28/18 04:58 CT abd pelvis IV con only Urgent 05/28/18 12:45 FL retrograde includes kub Routine Hospital Course (1) Left ureteral calculus: (2) Hydronephrosis of left kidney: (3) Rheumatoid arthritis: (4) Hypertension: (5) Rosacea: 72-year-old female arrived to the ER for evaluation of left lower quadrant pain presenting 48 hours prior to arrival. Workup revealed a left ureteral stone that was 6 mm in size. She had moderate hydronephrosis seen on CT imaging. She was admitted to the hospitalist service and urology was consulted. Pain control efforts continued until she was taken to the OR that same day. She was given IV ciprofloxacin preoperatively there was no evidence of infection on urinalysis. Urine culture was pending at discharge. She underwent a cystoscopy with left retrograde pyelography and left ureteral stent placement. Fluoroscopy revealed good stent position after completion of the case and she was sent back to the medical sena. Her diet was advanced and she was tolerating solid foods by the end of the day and asking to go home. That time she was pain-free physical exam revealed a complete resolution of abdominal pain contrasted to severe abdominal pain earlier that morning. She had no CVA tenderness. She was hemodynamically stable and afebrile and oxygen eating well on room air. She was ambulating at baseline and mentating at baseline. Case was discussed with Dr. Berrios, urology, who recommended a post operative course of ciprofloxacin, Pyridium as needed pain and Percocet as needed severe pain. The patient will be contacted for further outpatient urology follow-up. Close primary care follow-up was recommended within a week of discharge. She verbalized understanding with intent to comply. ADDENDUM: I spoke with the patient the following day about concerns with warnings of cipro and steroids. Weighing the risk and benefit it was recommended that she either take the 3 day course of prophylactic cipro provided, or she could forgo it as there was no evidence of infection. Alternatively she could call Dr. Berrios's office for a different antibiotic recommendation. She verbalized understanding with intent to comply. Total Time Total Time Spent Total Time Spent (In Minutes): 60 Total Time Includes: Examination of the Patient, Discharge Planning, Medication Reconciliation, Communication With Other Providers and Other (scheduled follow- up) Discharge Plan Discharge Items Patient Disposition: Home - Self-Care Reason For Visit: URETERAL STONE WITH COLIC Discharge Diagnosis: ureteral stone with colic Condition: Good Discharge Goals: Decrease discomfort Activity: Resume your previous activity Non-emergency contact: Primary Care Provider Call non-emergency contact if: you have any medication questions, your symptoms worsen, your pain is not controlled, your pain is worsening, your pain is unusual for you, your pain is concerning for you and you have a fever Follow-up/Referrals: Lanre Berrios MD [Surgeon] - Daniel Anderson [Primary Care Provider] - Diet: Regular Addtl Provider Instructions: Please take all medications as instructed on discharge list below. You can expect [facility] to call you to set up the follow-up appointment in the next couple of days. If you do not hear from them within this time, please call their office to set up a follow-up appointment. Please contact Dr. Berrios's office with any concerning symptoms if they should arise. Someone from our staff will contact you regarding a hospital follow-up appointment with your primary care provider. This is recommended within a week of discharge. It was a pleasure taking care of you! Please call if you have any questions or problems. You can reach a [facility] hospitalist on duty at [facility] 24 hours a day by calling [phone]. Take care of yourself. Gabby Nieto, DO [facility] Hospitalist Prescriptions: New oxycodone-acetaminophen 5-325 mg tablet 1 tab PO Q6H PRN (Reason: pain) Qty: 10 RF: 0 ciprofloxacin HCl 250 mg tablet 250 mg PO BID Qty: 6 RF: 0 phenazopyridine [Pyridium] 200 mg Tablet 200 mg PO TID PRN (Reason: pain) Qty: 20 RF: 0 Continued valacyclovir [Valtrex] 1 gram Tablet 1,000 mg PO DAILY PRN (Reason: Cold Sores) RF: 0 [id number]-afaqvomue-bexm Tablet 1 tab PO DAILY RF: 0 ascorbic acid (vitamin C) [Vitamin C] 500 mg Tablet 500 mg PO DAILY RF: 0 folic acid 1 mg Tablet 1 mg PO SUMOTUWETHFR@0900 RF: 0 lisinopril 5 mg Tablet 5 mg PO DAILY RF: 0 vitamin E 400 unit Capsule 400 unit PO DAILY RF: 0 levothyroxine 112 mcg Tablet 112 mcg PO DAILYBB RF: 0 cholecalciferol (vitamin D3) [Vitamin D3] 1,000 unit Tablet 1,000 unit PO DAILY RF: 0 [id number]-[id number]-iqh-ozh-dbsmhxi-ast [krill oil] 1,172-228-41-80 mg Capsule 1 cap PO DAILY RF: 0 Super B Complex Po Tabs 1 dose PO DAILY RF: 0 methotrexate sodium 2.5 mg Tablet 2.5 mg PO UD RF: 0 prednisone 1 mg Tablet 4 mg PO DAILY RF: 0 metronidazole 0.75 % Gel 1 applic TOPICAL BID RF: 0 milk thistle seed extract 140 mg Capsule 140 mg PO BID RF: 0 Stand-Alone Forms: Call Back Authorization, [facility], Opioid Pain Management Jerry/Other Patient Handouts: Stents Ureteral Discharge Orders: Discharge Order (Routine); Ordered 05/28/18 Ordered By: Gabby Nieto Admission Data Admit Date/Time: 05/28/18 08:29 Attending Provider: Gabby Nieto Admit Provider: Gabby Nieto Primary Care Provider: Daniel Anderson Other Providers: Daniel Mark ; Dallas Clemons ; Shakeel Bello ; Lanre Berrios I. ; Devon Larkin ; Yuliana Newman ; Dano Cam II ; Chastity Peace Service: Medical Other Interventions: Discharge Summary Assessment (RN) Last Done: 05/28/18 19:44 DC Date/Time DO NOT enter until pt leaves facility: 05/28/18 20:57
[2018-05-28] MEDS ORDERED: metroNIDAZOLE 0.75% TOPICAL GEL 45 GM TUBE TOP SCH (21:00)
[2018-05-28] MEDS ORDERED: DOCUSATE SODIUM 100 MG CAP PO SCH (21:00)
[2018-05-29] MEDS ORDERED: LEVOTHYROXINE SODIUM 112 MCG TABLET PO SCH (06:30)
[2018-05-29] MEDS ORDERED: predniSONE 1 MG TAB PO SCH (09:00)
[2018-05-29] MEDS ORDERED: CHOLECALCIFEROL 1,000 UNITS TAB PO SCH (09:00)
[2018-05-29] MEDS ORDERED: FOLIC ACID 1 MG TAB PO SCH (09:00)
[2018-05-29] MEDS ORDERED: LISINOPRIL 5 MG TAB PO SCH (09:00)
[2018-05-29] MEDS ORDERED: POLYETHYLENE (MIRALAX) 17 GM PACK PO SCH (09:30)
[2018-06-02] MEDS ORDERED: metHOTREXate sodium 2.5 MG TAB PO SCH (09:00)
== END 2018-05-28 20:57 | disposition home or self-care (01) | DRG 661 ==
LOC: ED 04:41 → 3W 08:29

== ENCOUNTER 2023-06-13 05:01 | Inpatient (IN) ==
--- NOTE | 2023-05-26 10:15 | Anesthesiology Consultation ---
Date of Service May 26, 2023 Assessment & Plan Chart Review Chart Review: Acceptable Risk for Surgery Consults Requested none History Surgery Operation Date: 06/13/23 10:40 Proposed Procedures p Left Total Knee Arthroplasty - Deepak Yoon MD Height/Weight Height: 5 ft 1 in Weight: 63.503 kg Allergies Allergy/AdvReac Type Severity Reaction Status Date / Time Penicillins Allergy Unknown HIVES,SPLOT Verified 05/26/23 07:33 MALIA Sulfa (Sulfonamide Allergy Unknown UNKNOWN Verified 05/26/23 07:33 Antibiotics) levofloxacin [From Levaquin] AdvReac Unknown nausea and Verified 05/26/23 07:33 vomiting Medications Home Medications Medication Instructions Recorded Confirmed Last Taken folic acid 1 mg tablet 1 mg PO QAM 05/28/18 05/26/23 06/07/18 prednisone 1 mg tablet 1 mg PO Q OTHER DAY 05/28/18 05/26/23 06/07/18 Amino Acid Synergy 1 cap PO UD 11/04/22 05/26/23 Unknown atorvastatin 10 mg tablet 10 mg PO QAM 11/04/22 05/26/23 Unknown calcium citrate-vitamin D3 1 dose PO BID 11/08/22 05/26/23 Unknown ergocalciferol (vitamin D2) 1,250 1,250 mcg PO WK 05/26/23 05/26/23 Unknown mcg (50,000 unit) capsule (Vitamin D2) levothyroxine 100 mcg tablet 100 mcg PO QAM 05/26/23 05/26/23 Unknown Past Medical History Medical History (Updated 05/26/23 @ 08:04 by Brigette Carpenter RN) Bacterial infection Mar 2022 > from a wound on leg from an injury, was never told it was MRSA, but unaware of what it is, "it's in my whole body" following with [facility] is who originally diagnosed it, wound is now closed. 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 Aortic valve is moderately calcified. Moderate to severe aortic stenosis is present, peak aortic valve velocity 3.6 m/s, mean aortic valve gradient 30 mmHg. 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 - stable Female stress incontinence Reflux esophagitis well controlled and stable Hypertension hx-no longer on medications Chronic sinusitis Hypothyroidism Past Family History Family History Father Liver cancer Son Pancreatic cancer Mother Family history of diabetes mellitus Past Surgical History Surgical History (Updated 05/26/23 @ 07:40 by Brigette Carpenter RN) Hx of colonoscopy Hx of lithotripsy Status post right knee replacement History of dilatation and curettage History of bilateral tubal ligation History of cystoscopy with stent History of flexible sigmoidoscopy History of nasal septoplasty History of tonsillectomy History of adenoidectomy Status post appendectomy Status post cholecystectomy Social History Smoking Status: Former smoker tobacco type: cigarettes Do You Dip or Chew Tobacco: No Smoking End Date: 30 yrs ago Hx Alcohol Use: No Hx Substance Use: No substance use type: does not use Last Used Substance Other:: used to use medical marijuana
[2023-06-13] MEDS: CeleBREX 200 MG CAP PO SCH (05:38)
[2023-06-13] MEDS: ACETAMINOPHEN 500 MG TAB PO SCH ×2 (05:38→13:51)
[2023-06-13] MEDS: METOCLOPRAMIDE HCL 10 MG TABLET PO SCH (05:38)
[2023-06-13] MEDS: LR 15ML/HR IV SCH (05:41)
[2023-06-13] MEDS: LR 60ML/HR IV SCH (05:41)
[2023-06-13] MEDS: dexAMETHasone**PF** 10 MG/ML VIAL IV SCH (05:51)
[2023-06-13] MEDS ORDERED: ceFAZolin 2000MG 2,000 MG/15 ML SYR IV SCH (06:00)
[2023-06-13] MEDS ORDERED: BUPIVACAINE 0.5 % 5 MG/1 ML PF 10ML VIAL ONE (06:17)
[2023-06-13] MEDS ORDERED: ROPIVACAINE 0.5% 5 MG/ML 30 ML VIAL ONE (06:17)
[2023-06-13] MEDS ORDERED: MIDAZOLAM HCL 1 MG/ML 2ML VIAL ONE (06:37)
[2023-06-13] MEDS ORDERED: Nursing to Pharmacy Communication SCH (06:45)
--- NOTE | 2023-06-13 06:51 | History & Physical Bridge Note ---
Date of Service June 13, 2023 History & Physical Bridge Note I have examined the patient, reviewed the History & Physical and in the interval since the performance of the History & Physical I have noted the following changes of clinical significance: no changes noted
[2023-06-13] MEDS: ceFAZolin 2000MG 2,000 MG/15 ML SYR IV SCH (07:00)
[2023-06-13] MEDS: ROPIV 0.5% 246mg, Ketorolac 30mg, EPINEPHrine 0.5mg in NSS INFIL SCH (07:41)
[2023-06-13] MEDS: ORTHO JOINT ANESTHETIC ONE (07:42)
[2023-06-13] MEDS ORDERED: PROPOFOL IV EMULSION 10 MG/ML 20 ML VIAL IV ONE (07:50)
[2023-06-13] MEDS ORDERED: PHENYLEPHRINE 100MCG/ML 10ML SYR IV ONE (07:50)
[2023-06-13] MEDS ORDERED: LIDOCAINE 2% 2 ML VIAL/AMP(20MG/ML) INFIL ONE (07:50)
[2023-06-13] MEDS ORDERED: TRANEXAMIC ACID / 0.7% NACL 1000MG/100ML BAG IV ONE (07:50)
[2023-06-13] MEDS: TRANEXAMIC ACID 1,000 MG **IV Intra-op IV SCH (07:53)
[2023-06-13] MEDS ORDERED: PHENYLEPHRINE HCL 10 MG/ML VIAL ONE (08:26)
--- NOTE | 2023-06-13 08:40 | Operative Report ---
PG Post Operative Report Pre & Post Diagnosis Operation Date: 06/13/23 07:00 Pre-Op Diagnosis: Degenerative joint disease left knee Post-Op Diagnosis: Degenerative joint disease left knee I identified the patient and participated in the time-out.: Yes Procedure Operation Date: 06/13/23 07:00 Actual Procedures p Left Total Knee Arthroplasty(Left) - Deepak Yoon MD Surgeon Deepak Yoon MD Qc Scientist Abbe Henry PA-C Estimated Blood Loss 50 Findings Consistent with Post-Op Diagnosis Operative findings were advanced left knee tricompartment DJD. She had grade 4 [id number] disease in all 3 compartments. Not much in the way of eburnation but did have full-thickness cartilage loss. Most severe eburnation was laterally on the lateral tibial plateau. Diffuse osteopenia throughout. Specimens Left knee sent for pathology. Anesthesia Type Spinal MAC Complications none Disposition Accompanied Patient To Recovery: No Indications Patient is a 77-year-old female is had a long history of knee problems. She had a right knee replaced about 8 years ago and is done well from this. Over the years she developed increased pain discomfort in her left knee. She been through extensive conservative treatment which became less successful over time. She elected proceed with total knee arthroplasty. The patient was medically optimized by her primary care doctor and the vamp liner preoperatively. Description of Procedure Operative implants consist of: 1 Biomet Vanguard size 62.5 left posterior stabilized femoral component. 2. Biomet size 67 tibial tray. 3. 10 mm posterior stabilized polyethylene insert. 4. 31 x 8 all poly patella. The patient was taken the operating, identified, placed on the operating table in the supine position but all contact areas were appropriately padded. IV antibiotics 5 by anesthesia team. A spinal anesthetic and adductor canal block had been provided in the holding area. A Quevedo catheter was placed in sterile fashion to the left thigh drape was then placed. Left lower extremities then prepped and draped in the usual sterile fashion. The left leg was elevated exsanguinated with use of an Esmarch and tourniquet placed at 300 mmHg. An anterior approach left knee was then performed to longitudinal incision centered over the patella. Sharp dissection carried through subcutaneous tissue down the extensor mechanism. Medial parapatellar arthrotomy incision was made. Some subperiosteal dissection was carried out medially. The fat pad was resected from Neath patella tendon. The lateral patellofemoral ligament was released and the patella subluxated laterally. The knee was flexed. The osteophytes were taken off distal femur. ACL and PCL were then released from distal femur and the tibia subluxated anteriorly. The external treatment LYMErix then placed the anterior face of the tibia and adjusted 14 mm medially. Proximal tibial cut was made remove about 2 mm of bone from the medial side. The tibia was then sized to a size 67. Attention drawn the femur. The distal femur examined the sharp drill. Intramedullary canal was suction. A left 5 degree valgus cutting guide was placed. This femoral cutting block was pinned in place. Distal femoral cut was made to take an additional 3 mm of bone off distal femur. The femur was then sized to a size 62.5. The AP cutting block was pinned parallel to the epicondylar axis which was 5 degrees of external rotation. The anterior cut, anterior chamfer, posterior cut, posterior chamfer cuts were made. The box cutting guide was placed in the just slight lateral and the box cut was made. The knee was flexed. The remnants of the medial and lateral menisci were excised. The osteophytes were taken off the posterior aspect of the femur. A trial femoral component was placed. The tibial tray was pinned Esperanza external rotation and the drill and stem punch used to create defect in the proximal tibia for the tibial tray. The knee was then trialed and 10 mm insert fit most appropriately. Attention drawn the patella. The patella was cleaned of all soft tissue. Patella thickness measured 21 mm in thickness was cut down to 13. Was sized to a size 31 patella. The lug holes were drilled for 31 patella. The lateral osteophytes removed. Patella button was placed. Knee was taken through range of motion patella tracked nicely with no thumbs test. Attention drawn to placing permanent components. All trial components were removed. Bone plug was placed into this femur limit blood loss. A double batch [place] G cement was mixed. Biomet Vanguard size 62.5 left Po stabilized femoral component, size 67 tibial tray, a 10 mm post stabilized polyethylene insert, and a 31 x 8 all poly patella then cemented in place. The knee was brought into full extension till cement hardened. Final cement check was then performed. The pericapsular tissues were injected with a total of 100 cc of orthopedic joint mix. The patient did receive 1 g of tranexamic acid. The tourniquet was let down for final tourniquet time 53 minutes. Hemostasis assured with electrocautery. Extensor Meclomen closed with combination 1 PDS suture #1 Vicryl suture in a [id number] fashion. Extensor Meclomen checked found to be intact with subcutaneous tissue then closed with 2 Dexon suture in a buried interrupted fashion skin was closed skin miguel. Leg was then cleaned dried and sterile dressing with Xeroform, 4 fours, sterile cast padding, Cy bandage were applied. Patient then transferred to the recovery room in stable condition. Patient tolerated procedure well and there were no complications. Abbe Henry, my physician miller head assistant wet process, was present for the entire procedure. His assistance was essential and required for appropriate patient positioning, prepping and draping, surgical exposure, performing the technical details of the operation, placement the implants, closure of the wound, and placement of the sterile bandage. I attest to the content of the Intraoperative Record and any orders documented therein. Any exceptions are noted below.
--- OUTSIDE RECORDS SUMMARY | 2023-06-13 08:54 | External Medical Summary | Summary of Care ---
Author Name Unknown Organization [facility] Address [address] [place] [address] Phone [phone] Care Team Providers Care Guest Services Ambassador Name Role Phone Reji Mendoza DO Primary Care Provider [phone] Encounter Details Date Type Department Care Team (Late st Contact Info) Description 06/08/2023 Orders Only Family Practice [facility] [address] [place] [phone] Reji Mendoza DO [address] [place] [address] Allergies Active Allergy Reactions Criticality Noted Date Comments Cephalexin Rash High 05/10/2022 Levofloxacin In D5w 03/30/2015 Nausea, Dizziness Penicillins Hives 12/08/1998 As an adult in her early 50's Sulfa Antibiotics 04/20/2000 Facial swelling in her 60's documented as of this encounter (statuses as of 06/08/2023) Medications Medication Sig Dispensed Refills Start Date End Date Status Denosumab 60 MG/ML Subcutaneous Solution Prefilled Syringe (Prolia)Indications: Senile osteoporosis Inject 60 mg under the skin once. 1 Each 0 06/08/2021 Active Acetaminophen 500 MG Oral Tablet Take 2 Tablets by mouth every 8 hours as needed (advised to take every morning). 0 Active Atorvastatin Calcium 10 MG Oral Tablet (Lipitor) Take 1 Tablet by mouth in the morning. 90 Tablet 3 07/29/2022 Active Calcium Citrate-Vitamin D 315-5 MG-MCG Oral Tablet Take 1 Tablet by mouth in the morning and 1 Tablet in the evening. 0 Active Betamethasone Dipropionate Aug 0.05 % External Cream (Diprolene AF) Apply to bilateral lower legs with Unna boot change (bring to dermatology appointment) 50 g 1 09/22/2022 Active Vitamin D (Ergocalciferol) 1.25 MG (16821 UT) Oral Capsule (Drisdol) Take 1 Capsule by mouth once a week. Takes on Saturdays 5 Capsule 5 2022 Active Folic Acid 1 MG Oral TabletIndications:Rh eumatoid arthritis of multiple sites with negative rheumatoid factor (HCC) Take 1 Tablet by mouth in the morning. 90 Tablet 3 12/26/2022 Active Triamcinolone Acetonide 0.1 % External Cream (Aristocort)Indicati ons:Dermatitis Apply to itchy areas on legs twice daily as needed 80 g 1 04/03/2023 Active Levothyroxine Sodium 100 MCG Oral Tablet (Levoxyl)Indications :Acquired hypothyroidism Take 1 Tablet by mouth in the morning. (at least 30 min prior to breakfast or other meds). 100 Tablet 3 04/18/2023 Active predniSONE 1 MG Oral Tablet (Deltasone)Indicatio ns:PMR (polymyalgia rheumatica) ([facility]) Take 1 Tablet by mouth every other day. 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 08/07/2019 Medical marijuana use 11/28/2018 Aortic valve stenosis, moderate 09/20/2016 Rheumatoid arthritis of mult iple sites without rheumatoid factor 03/09/2016 History of skin disorder 10/02/2013 Overview: Skin erosion 2013, Derm ADVANCE DIRECTIVE INFORMATION 12/16/2004 Overview: Yes, Patient instructed to provide copy of advance directive for provider to review and to be scanned into Electronic Medical Record Encounter for long-term (current) use of medicat ions 07/21/2003 Overview: ICD-10 update of inactive term Hypothyroidism Chronic sinusitis FEM STRESS INCONTINENCE PMR (polymyalgia rheumatica) documented as of this encounter (statuses as of 06/08/2023) Resolved Problems Problem Noted Date Diagnosed Date Resolved Date Gastroesophageal reflux dise ase with esophagitis 11/04/2020 02/05/2021 Atherosclerosis of aorta 06/25/201811/2020 Encounter for examination fo r normal comparison and control in clinical research program 06/13/2017 09/30/2019 Overview: DO NOT DELETE [facility] DETECT Study: Project # [id number], Card Grinder Helper: Shakeel Beck, PhD. SUMMARY: Goal: Establish test characteristics (sensitivity, specificity, PPV, NPV) of a circulating tumor DNA (ctDNA)-based test for cancer. Hypothesis: Circulating tumor DNA (ctDNA) and elevated protein biomarkers (together, the marker panel) can be detected in asymptomatic individuals with early cancer. Specific Aim 1: Determine the prevalence of a positive marker panel test in a prospective clinical cohort of 10,000 asymptomatic women ages 65 to 75 years. Specific Aim 2: Determine the sensitivity, specificity, positive predictive value (PPV) and negative predictive value (NPV) of a marker panel test to identify histologically proven cancers that develop within 5-years of the marker panel evaluation. CONTACTS: During normal business hours, contact study staff at ; after hours Card Grinder Helper via the [facility] lasting machine operator . Please contact study team before resolving/deleting from patients problem list. Study phone number: [phone]. Diagnosis changed due to Research Module. Go to Snapshot for study details. Encounter for examination fo r normal comparison and control in clinical research program 06/13/2017 10/28/2021 Overview: DO NOT THANIATE [facility] DETECT Study: Project # [id number], Card Grinder Helper: Hernan Garcia, MS, MPH. SUMMARY: Goal: Establish test characteristics (sensitivity, specificity, PPV, NPV) of a circulating tumor DNA (ctDNA)-based test for cancer. - Hypothesis: Circulating tumor DNA (ctDNA) and elevated protein biomarkers (together, the marker panel) can be detected in asymptomatic individuals with early cancer. - Specific Aim 1: Determine the prevalence of a positive marker panel test in a prospective clinical cohort of 10,000 asymptomatic women ages 65 to 75 years. - Specific Aim 2: Determine the sensitivity, specificity, positive predictive value (PPV) and negative predictive value (NPV) of a marker panel test to identify histologically proven cancers that develop within 5-years of the marker panel evaluation. - CONTACTS: During normal business hours, contact study staff at ; after hours Card Grinder Helper via the [facility] lasting machine operator . - Please contact study team before resolving/deleting from patients problem list. Study phone number: [phone]. Diagnosis changed due to Research Module. Go to Snapshot for study details. [id number] 11/22/200405/28 Overview: Renamed Per Clinical Trials Billing Project. Pt is a participant in the [employer] (Consortium of Rheumatology Researchers of [place]) national data collection study. For further information please call Dr Gregory Velasquez or Pooja Ratliff, RN, CCRC at [phone] [facility] RESEARCH OTHER*[id number] 11/22/2004 08/24/2009 Overview: Renamed Per Clinical Trials Billing Project. Pt is a participant in the [employer] (Consortium of Rheumatology Researchers of [place]) national data collection study. For further information please call Dr Gregory Velasquez or Pooja Ratliff, RN, CCRC at [phone] Arthritis, rheumatoid 07/21/20032016 Polymyalgia rheumatica 07/04/200312/24 Myalgia and myositis 12/14/2002 017 HTN, goal below 140/90 04/01/200207/27 Actinic keratosis 12/03/2001 02/05/2021 Other chronic sinusitis 08/28 Reflux esophagitis Need for prophylactic hormon e replacement therapy (postmenopausal) 2016 documented as of this encounter (statuses as of 06/08/2023) Immunizations Name Administration Dates Next Due COVID-19 mRNA, LNP-s, No Pre serve, 2-Dose Series ([employer]) 05/27/2021,11/26/2020,05/16/2020,04/25 COVID-19, MRNA-LNP, 23-24, P F, 30 MCG/0.3 mL, 12 YRS AND ABOVE, IM ([employer] [employer]) 02/14/2023 Covid-19, Mrna, Lnp-s, Pf, B ivalent, 30 Mcg, IM, 12 yrs and above ([employer]) 11/23/2021 Pneumococcal Conjugate Vacc, 13 Valent (Prevnar) 2016 Pneumococcal Polysaccharide PPV23 (Pneumovax) 07/01/2009 RSV Vac., Recomb, Adjuvant, PF,0.5 Ml (Arexvy) 11/02/2022 Seasonal Influenza, PF, 6 M & above, IM , (FluLaval or Fluzone) 2017 Seasonal Influenza, Quadriva lent Hd (Fluzone Hd) 11/02/2022,2021,11/04/2020 Seasonal Influenza, Quadriva lent Hd, 65+ Yrs 11/12/2019 Seasonal Influenza, Quadriva lent, No Preserve, IM 11/12/2019,2016,2015,11/24 Seasonal Influenza, Split, I IV3, No Preserve, Inj 11/26/2008 Seasonal Influenza, Split, I IV3, With Preserve, Inj 12/17/2013,11/17/2012,11/14/2011,01/19,01/05/2010,11/26/2008,12/17/2007 ,12/07/2006,01/10/2006 Seasonal Influenza, Trivalen t, Adjuvanted, 65+ yrs 11/28/2018 TDAP (age 10 and older)(Boostrix) 09/30/2013 Zoster Vaccine Recombinant (Shingrix) 09/12/2019 ,03/14/2019,02/07/2019 documented as of this encounter Social History Tobacco Use Types Packs/Day Years Used Date Smoking Tobacco: Former Cigarettes 0.1 5 0 02/27/1959 - 02/28/1964 Passive Smoke Exposure: Past Smokeless Tobacco: Never Comments:smoked 1 pack a wee k; quit 1967 Alcohol Use Standard Drinks/Week Comments No 0 (1 standard drink = 0.6 oz pure alcohol) As of 3..2011, the last noted alcohol intake was 1 ounces. rare 2/year PHQ-2 Answer Date Recorded PHQ Adult Total Score 0 02/14/2023 Hunger Vital Sign Answer Date Recorded Within the past 12 months, y ou worried that your food would run out before you got the money to buy more. Never true 02/11/20 23 Within the past 12 months, t he food you bought just didn't last and you didn't have money to get more. Never true 02/10/2023 Sex and Gender Information Value Date Recorded Sex Assigned at Female 10/13/2018 10:15 AM EDT Gender Identity Female 10/13/2018 10:15 AM EDT Sexual Orientation Straight 10/13/2018 10 :15 AM EDT Job Start Date Occupation Industry Not on file Not on file Not on file documented as of this encounter Plan of Treatment Upcoming Encounters Date Type Department Care Team (Late st Contact Info) Description 06/22/2023 4:15 PM EDT Office Visit Dermatology [facility] [address] [place] [address] Olena Andrea MD [address] [place] [address] 10/05/2023 11:00 AM EDT Office Visit Family Practice [address] [place] [address] [address] [facility] [place] [address] Reji Mendoza, 293 [facility], [place] [address] 10/09/2023 3:30 PM EDT Imaging Radiology, [place] [address] [facility] [place] [address] 12/11/2023 8:30 AM EDT Office Visit [facility], [facility] [address] Rekha Milner CRNP 132 [facility] [place] [address] 02/16/2024 11:00 AM EST Nurse Only Ancillary [facility] [address] [place] [address] College, Nurse Annual Wellness Visit 65 [facility] [address] [place] [place] [address] 03/06/2024 9:30 AM EST Cardiac Studies Cardiac Studies, [facility] 132 [facility] [place] [address] Scheduled Procedures Name Priority Associated Diagnoses Date/Ti me COLONOSCOPY FLEXIBLE PROXIMA L DIAGNOSTIC Recall History of colonic polyps Health Maintenance Due Date Last Done Comments DXA Scan 03/29/2023 03/29/2021, 03/01, 11/19/2018, Additional history exists DTaP,Tdap,and Td Vaccines (2 - Td or Tdap) 10/01/2023 09/30/2013, 05/09/2003, 08/14/1992 Depression Screening 04/03/2024 04/03/2023, 11/24/2014 (Discussed) TSH 04/12/2024 04/12/2023, 06/29, 06/07/2022, Additional history exists COLONOSCOPY-EVERY 3 YRS AGES 18-100 04/19/2026 04/19/2023, 04/19/2023, 06/25/2008 Pneumococcal Vaccine: 65+ Years Completed 2016, 07/01/2009, 05/12/2004 Zoster Vaccines Completed 09/12/2019, 02/27, 02/07/2019 Albumin/Creatinine Ratio Discontinued 12/08/2021 Influenza Vaccine (FLU shot) Completed 11/02/2022, 2021, 11/04/2020, Additional history exists VITAMIN D LEVEL ONCE IN A LIFETIME-USE SMARTSET# 37935 Completed 02/01/2023, 05/17/2018, 05/07/2010, Additional history exists COVID-19 Vaccine Completed 02/14/2023, , 05/27/2021, Additional history exists GARDASIL-HPV IMMUNIZATION SERIES Aged Out No longer eligible based on patient's age to complete this topic Hepatitis B Aged Out No longer eligi ble based on patient's age to complete this topic MENINGOCOCCAL (MENACTRA/MENVEO) Aged Out No longer eligible based on patient's age to complete this topic documented as of this encounter Medical Devices Not on filedocumented as of this encounter Procedures Procedure Name Priority Date/Time Associated Diagnosis Comments CHEMISTRY-OUTSIDE Routine 05/22/2023 CHEMISTRY-OUTSIDE Routine 05/22/2023 documented in this encounter Results * CHEMISTRY-OUTSIDE (05/22/2023) Not all results display below - see scan for full detail OUTSIDE LAB (SEE SCANNED REPORT) Comment:"SCAN INCLUDES" - CM P, CRP CREATININE-OUTSID E LAB 0.76 0.6 - 1.2 MG/DL OUTSIDE LAB (SEE SCANNED REPORT) EGFR-OUTSIDE LAB 74.6 NO RANGE ML/MIN/1.7 3M2 OUTSIDE LAB (SEE SCANNED REPORT) POTASSIUM-OUTSIDE LAB 3.9 3.5 - 5.1 MMOL/L OUTSIDE LAB (SEE SCANNED REPORT) GLUCOSE-OUTSIDE LAB 97 70 - 99 MG/DL OUTSIDE LAB (SEE SCANNED REPORT) HOURS FASTING OUTSID E LAB (SEE SCANNED REPORT) TRIGLYCERIDES-OUT SIDE LAB OUTSIDE LAB (SEE SCANNED REPORT) CHOLESTEROL-OUTSI DE LAB OUTSIDE LAB (SEE SCANNED REPORT) HDL-OUTSIDE LAB OUTS [facility] (SEE SCANNED REPORT) CHOL/HDL RATIO-OUTSIDE LAB OUTSIDE LA B (SEE SCANNED REPORT) LDL (CALCULATED)-OUTS [facility] LAB OUTSIDE LAB (SEE SCANNED REPORT) LDL (DIRECT MEASURE)-OUTSIDE LAB OUTSIDE LAB (SEE SCANNED REPORT) HEMOGLOBIN, [id number] LAB OUTSIDE LAB (SEE SCANNED REPORT) PHOSPHORUS-OUTSID E LAB OUTSIDE LAB (SEE SCANNED REPORT) PTH-OUTSIDE LAB OUTS [facility] LAB (SEE SCANNED REPORT) MICROALBUMIN RATIO-OUTSIDE LAB OUTSIDE LA B (SEE SCANNED REPORT) PROTEIN, UA-OUTSIDE LAB OUTSIDE LAB (SEE SCANNED REPORT) HGB OUTSIDE LA B (SEE SCANNED REPORT) 05/22/2023 Deepak Yoon MD LABORATORY Performing Organization Address [facility] Co de Phone Number OUTSIDE LAB (SEE SCANNED REPORT) * CHEMISTRY-OUTSIDE (05/22/2023) Not all results display below - see scan for full detail OUTSIDE LAB (SEE SCANNED REPORT) Comment:"SCAN INCLUDES" - CB C/DIFF, PLT CREATININE-OUTSID E LAB OUTSIDE LAB (SEE SCANNED REPORT) EGFR-OUTSIDE LAB OUT SIDE LAB (SEE SCANNED REPORT) POTASSIUM-OUTSIDE LAB OUTSIDE LAB (SEE SCANNED REPORT) GLUCOSE-OUTSIDE LAB OUTSIDE LAB (SEE SCANNED REPORT) HOURS FASTING OUTSID E LAB (SEE SCANNED REPORT) TRIGLYCERIDES-OUT SIDE LAB OUTSIDE LAB (SEE SCANNED REPORT) CHOLESTEROL-OUTSI DE LAB OUTSIDE LAB (SEE SCANNED REPORT) HDL-OUTSIDE LAB OUTS [facility] LAB (SEE SCANNED REPORT) CHOL/HDL RATIO-OUTSIDE LAB OUTSIDE LA B (SEE SCANNED REPORT) LDL (CALCULATED)-OUTS [facility] LAB OUTSIDE LAB (SEE SCANNED REPORT) LDL (DIRECT MEASURE)-OUTSIDE LAB OUTSIDE LAB (SEE SCANNED REPORT) HEMOGLOBIN, D8P-[id number] LAB OUTSIDE LAB (SEE SCANNED REPORT) PHOSPHORUS-OUTSID E LAB OUTSIDE LAB (SEE SCANNED REPORT) PTH-OUTSIDE LAB OUTS [facility] LAB (SEE SCANNED REPORT) MICROALBUMIN RATIO-OUTSIDE LAB OUTSIDE LA B (SEE SCANNED REPORT) PROTEIN, UA-OUTSIDE LAB OUTSIDE LAB (SEE SCANNED REPORT) HGB 15.4 12.0 - 16.0 G/DL OUTSIDE LAB (SEE SCANNED REPORT) 05/22/2023 Deepak Yoon MD LABORATORY Performing Organization Address [facility]/ZIP Co de Phone Number OUTSIDE LAB (SEE SCANNED REPORT) documented in this encounter Advance Directives Documents on File Type Date Recorded Patient Venue Attendant Expl anation POLST 09/29/2022 10:42 AM POLST Healthcare Agents on File Name Relationship Healthcare Agent Relationship Communication Zulema Joseph Other - (no specific identity) Health Care Venue Attendant (appointed verbally by patient or by statute hierarchy) Care Teams Guest Services Ambassador Relationship Specialty Start Date End Date Reji Mendoza DO [address] [place] [address] PCP - General Internal Medicine 02/05/21 documented as of this encounter
--- OUTSIDE RECORDS SUMMARY | 2023-06-13 08:54 | External Medical Summary | Summary of Care ---
Author Name Unknown Organization [facility] Address [address] [place] [address] Phone [phone] Care Team Providers Care Counter Stitcher Name Role Phone Reji Mendoza DO Primary Care Provider [phone] Encounter Details Date Type Department Care Team (Late st Contact Info) Description 05/22/2023 Result Scan Unspecified Department <No scans attached> Allergies Active Allergy Reactions Criticality Noted Date [...] 09/22/2022 Active Vitamin D (Ergocalciferol) 1.25 MG (05548 UT) Oral Capsule (Drisdol) Take 1 Capsule [...] MG Oral Tablet (Deltasone)Indicatio ns:PMR (polymyalgia rheumatica) ([facility]) Take 1 Tablet by mouth every other [...] 06/13/2017 09/30/2019 Overview: DO NOT DELETE Dipesh [facility] DETECT Study: Project # [id number], Abstract Manager: Shakeel Beck, PhD. SUMMARY: Goal: Establish test [...] contact study staff at ; after hours Abstract Manager via the [facility] hospital open developer operator . Please contact study team before resolving/deleting from patients problem list. Study phone number: [phone]. Diagnosis changed due to Research Module. Go to Snapshot for study details. Encounter for examination fo r normal comparison and control in clinical research program 06/13/2017 10/28/2021 Overview: DO NOT DELETE Dipesh [facility] DETECT Study: Project # [id number], Abstract Manager: Hernan Garcia, MS, MPH. SUMMARY: Goal: Establish [...] contact study staff at ; after hours Abstract Manager via the [facility] hospital open developer operator . - Please contact study team before resolving/deleting from patients problem list. Study phone number: [phone]. Diagnosis changed due to Research Module. Go to Snapshot for study details. [id number] 11/22/200405/28 Overview: Renamed Per Clinical Trials Billing Project. Pt is a participant in the [employer] (Consortium of Rheumatology Researchers of [place]) national data collection study. For further information please call Dr Gregory Velasquez or Pooja Ratliff, RN, CCRC at [phone] [facility] RESEARCH OTHER*[id number] 11/22/2004 08/24/2009 Overview: Renamed Per Clinical Trials Billing Project. Pt is a participant in the [employer] (Consortium of Rheumatology Researchers of [place]) national data collection study. For further information please call Dr Gregory Velasquez or Pooja Ratliff, RN, CCRC at [phone] Arthritis, rheumatoid 07/21/20032016 Polymyalgia rheumatica 07/04/200312/24 Myalgia and myositis 12/14/2002 017 HTN, goal below 140/90 04/01/200207/27 Actinic keratosis 12/03/2001 02/05/2021 Other chronic sinusitis 08/28 Reflux esophagitis Need for prophylactic hormon e replacement therapy (postmenopausal) 2016 documented as of this encounter (statuses as of 06/08/2023) Immunizations Name Administration Dates Next Due COVID-19 mRNA, LNP-s, No Pre serve, 2-Dose Series ([employer]) 05/27/2021,11/26/2020,05/16/2020,04/25 COVID-19, MRNA-LNP, 23-24, P F, 30 MCG/0.3 mL, 12 YRS AND ABOVE, IM ([facility]) 02/14/2023 Covid-19, Mrna, Lnp-s, Pf, B ivalent, 30 Mcg, IM, 12 yrs and above (Pfizer) 11/23/2021 Pneumococcal Conjugate Vacc, 13 Valent (Prevnar) [...] 06/22/2023 4:15 PM EDT Office Visit Dermatology [facility] [address] [place] [address] Olena Andrea MD [address] [place] [address] 10/05/2023 11:00 AM EDT Office Visit Family Practice [address] [place] [address] 293 [place] [address] Reji Mendoza, 293 [place] [address] 10/09/2023 3:30 PM EDT Imaging Radiology, [facility] [address] [facility] [place] [address] 12/11/2023 8:30 AM EDT Office Visit Cardiology, [facility] [address] [place] [address] Rekha Milner CRNP 132 [facility] [place] [address] 02/16/2024 11:00 AM EST Nurse Only Ancillary 65 [facility] [address] [place] [address] College, Nurse Annual Wellness Visit 65 [facility] 293 [place] [address] 03/06/2024 9:30 AM EST Cardiac Studies Cardiac Studies, [facility] 132 [facility] [place] [address] Scheduled Procedures Name Priority Associated Diagnoses Date/Ti [...] D LEVEL ONCE IN A LIFETIME-USE SMARTSET# 29551 Completed 02/01/2023, 05/17/2018, 05/07/2010, Additional history exists [...] Procedure Name Priority Date/Time Associated Diagnosis Comments OUTSIDE LAB RESULTS 05/22/2023 OUTSIDE LAB RESULTS 05/22/2023 documented in this encounter Results * OUTSIDE LAB RESULTS (05/22/2023) 05/22/2023 No Physician Data Unknown LABORATORY * OUTSIDE LAB RESULTS (05/22/2023) 05/22/2023 No Physician Data Unknown LABORATORY documented in this encounter Advance Directives Documents on File Type Date Recorded Patient Chemical Plant Operator Expl anation POLST 09/29/2022 10:42 AM POLST Healthcare Agents on File Name Relationship Healthcare Agent Relationship Communication Zulema Opal Other - (no specific identity) Health Care Chemical Plant Operator (appointed verbally by patient or by statute hierarchy) Care Teams Counter Stitcher Relationship Specialty Start Date End Date Reji Mednoza DO [address] [place] [address] PCP - General Internal Medicine 02/05/21 documented as of this encounter
--- OUTSIDE RECORDS SUMMARY | 2023-06-13 08:55 | External Medical Summary | Summary of Care ---
Author Name Unknown Organization [facility] Address [address] [place] [address] Phone [phone] Care Team Providers Care Folder Seamer Automatic Name Role Phone Reji Mendoza DO Primary Care Provider [phone] Reason for Referral * Precert (Within 10 days (routine)) - Authorized Specialty Diagnoses / Procedures Referred By Contac t Referred To Contact Cardiac Studies Diagnoses Aortic valve stenosis, moderate Procedures ECHO, COMPLETE (2D), TRANS-THORACIC Rekha Milner CRNP [address] [place] [address] Referral ID Status Reason Start Date Expiration Date V isits Requested Visits Authorized [id number] Authorized Precert 02/28/2024 999 999 Reason for Visit * Reason Comments Follow Up Encounter Details Date Type Department Care Team (Latest Contact Info) Description 05/29/2023 8:30 AM EDT Office Visit Cardiology, [facility] [address] [place] [address] Rekha Milner CRNP [address] [place] [address] Aortic valve stenosis, moderate*; HTN, goal below 140/90; Pure hypercholesterolemia Allergies Active Allergy Reactions Criticality Noted Date Comments Cephalexin Rash High 05/10/2022 Levofloxacin In D5w 03/30/2015 Nausea, Dizziness Penicillins Hives 12/08/1998 As an adult in her early 50's Sulfa Antibiotics 04/20/2000 Facial swelling in her 60's documented as of this encounter (statuses as of 05/29/2023) Medications Medication Sig Dispensed Refills Start Date [...] 09/22/2022 Active Vitamin D (Ergocalciferol) 1.25 MG (74247 UT) Oral Capsule (Drisdol) Take 1 Capsule [...] MG Oral Tablet (Deltasone)Indicatio ns:PMR (polymyalgia rheumatica) ([facility]) Take 1 Tablet by mouth every other day. 0 05/03/2023 Active documented as of this encounter (statuses as of 05/29/2023) Active Problems Problem Noted Date Diagnosed Date Status post total right knee replacement 024 [...] as of this encounter (statuses as of 05/29/2023) Resolved Problems Problem Noted Date Diagnosed Date Resolved Date Gastroesophageal reflux dise ase with esophagitis 11/04/2020 02/05/2021 Atherosclerosis of aorta 06/25/201811/2020 Encounter for examination fo r normal comparison and control in clinical research program 06/13/2017 09/30/2019 Overview: DO NOT DELETE [facility] DETECT Study: Project # [id number], Sheriff'S Officer: Shakeel Beck, PhD. SUMMARY: Goal: Establish test [...] contact study staff at ; after hours Sheriff'S Officer via the [facility] special machine operator . Please contact study team before resolving/deleting from patients problem list. Study phone number: [phone]. Diagnosis changed due to Research Module. Go to Snapshot for study details. Encounter for examination fo r normal comparison and control in clinical research program 06/13/2017 10/28/2021 Overview: DO NOT DELETE - [facility] FLY Study: Project # [id number], Sheriff'S Officer: Hernan Garcia, MS, MPH. SUMMARY: Goal: Establish [...] contact study staff at ; after hours Sheriff'S Officer via the [facility] special machine operator . - Please contact study team before resolving/deleting from patients problem list. Study phone number: [phone]. Diagnosis changed due to Research Module. Go to [employer] for study details. [id number] 11/22/200405/28 Overview: Renamed Per Clinical Trials Billing Project. Pt is a participant in the [employer] (Consortium of Rheumatology Researchers of [place]) national data collection study. For further information please call Dr Gregory Velasquez or Pooja Ratliff, RN, CCRC at [phone] [facility] RESEARCH OTHER*[id number] 11/22/2004 08/24/2009 Overview: Renamed Per Clinical Trials Billing Project. Pt is a participant in the [employer] (Consortium of Rheumatology Researchers of [place]) national data collection study. For further information please call Dr Gregory Velasquez or Pooja Ratliff RN, CCRC at [phone] Arthritis, rheumatoid 07/21/20032016 Polymyalgia rheumatica 07/04/200312/24 Myalgia and myositis 12/14/2002 017 HTN, goal below 140/90 04/01/200207/27 Actinic keratosis 12/03/2001 02/05/2021 Other chronic sinusitis 08/28 Reflux esophagitis Need for prophylactic hormon e replacement therapy (postmenopausal) 2016 documented as of this encounter (statuses as of 05/29/2023) Immunizations Name Administration Dates Next Due COVID-19 mRNA, LNP-s, No Pre serve, 2-Dose Series ([employer]) 05/27/2021,11/26/2020,05/16/2020,04/25 COVID-19, MRNA-LNP, 23-24, P F, 30 MCG/0.3 mL, 12 YRS AND ABOVE, IM ([employer]) 02/14/2023 Covid-19, Mrna, Lnp-s, Pf, B ivalent, [...] = 0.6 oz pure alcohol) As of 3.26.2011, the last noted alcohol intake was 1 [...] on file documented as of this encounter Last Filed Vital Signs Vital Sign Reading Time Taken Comments Blood Pressure 136/86 05/29/2023 8:51 AM EDT Pulse 76 05/29/2023 8:33 AM EDT Temperature - - Respiratory Rate 14 05/29/2023 8:33 AM EDT Oxygen Saturation - - Inhaled Oxygen Concentration - - Weight 66.2 kg (146 lb) 05/29/2023 8:33 AM EDT Height - - Body Mass Index 28.51 05/03/2023 10:26 AM EST documented in this encounter Progress Notes * Rekha Milner CRNP - 05/29/2023 8:30 AM EDT 05/26/2023 Cardiology Follow Up Primary Park Attendant: CELINE; Formerly Dr. Pearl Cardiac Problems: Aortic Stenosis HTN PMR Hypothyroidism HLD HPI: Sheyla Street is a 77 year old female presents for routine follow up. Patient was last seen in our office by MISSY Saldana on 11/11/2022 for general cardiology follow up and preoperative clearance for an Left TKA. A repeat echo was obtained to check on the progression of her valvular disease prior to advancing to ortho surgery. Echo was suggestive that her aortic stenosis was more severe and therefore recommended and seen by Dr. Otero in valve clinic on 03/22/2023. Films were reviewed and it was deemed moderate in severity. Patient was cleared from a valve standpoint to move forward with her knee surgery as scheduled and should see valve clinic in one year with repeat echo. Patient presents today feeling well overall. Denies any cardiology questions or concerns. Denies any change or decline in functional capacity. Denies any chest pain, pressure, palpitations, no shortness of breath, PND, pre-syncope or syncope. BP high end of target, had a lot of stress driving in the rain today. Repeat is improved. She is following with Dr. Otero yearly for known aortic stenosis and will need to have an echocardiogram done prior to that next appt. He has cleared her for upcomming knee replacement surgery Reports compliance on all medication therapies with no untoward effects. REVIEW OF SYSTEMS: See HPI for pertinent positives. All others negative other than those noted in the HPI. CONSTITUTIONAL: No change in weight, No weakness, No fatigue and No fevers, No sweats or chills. PULMONARY: No cough, sputum, or hemoptysis, No wheezing, No shortness or breath and No recent change in breathing. CARDIOVASCULAR: No chest pain, No dyspnea on exertion, No edema, No palpitations and No syncope. GASTROINTESTINAL: No abdominal pain, No change in bowel habits, No significant heartburn, No nausea, No vomiting, No diarrhea, No constipation, No blood in stools or black tarry stools. No dysphagia. HEMATOLOGIC: No abnormal bleeding and No bruising. NEUROLOGICAL: Normal balance, No headaches and No weakness. Review of patient's allergies indicates: Allergen Reactions Cephalexin Rash Levaquin [Levofloxacin In D5w] Nausea, Dizziness Penicillins Hives As an adult in her early 50's Sulfa Antibiotics Facial swelling in her 60's Current Outpatient Medications Medication Sig Dispense Refill Acetaminophen 500 MG Oral Tablet Take 2 Tablets by mouth every 8 hours as needed (advised to take every morning). Atorvastatin Calcium 10 MG Oral Tablet (Lipitor) Take 1 Tablet by mouth in the morning. 90 Tablet 3 Calcium Citrate-Vitamin D 315-5 MG-MCG Oral Tablet Take 1 Tablet by mouth in the morning and 1 Tablet in the evening. Betamethasone Dipropionate Aug 0.05 % External Cream (Diprolene AF) Apply to bilateral lower legs with Unna boot change (bring to dermatology appointment) 50 g 1 Vitamin D (Ergocalciferol) 1.25 MG (61565 UT) Oral Capsule (Drisdol) Take 1 Capsule by mouth once aweek. Takes on Saturdays 5 Capsule 5 Folic Acid 1 MG Oral Tablet Take 1 Tablet by mouth in the morning. 90 Tablet 3 Triamcinolone Acetonide 0.1 % External Cream (Aristocort) Apply to itchy areas on legs twice daily as needed 80 g 1 Levothyroxine Sodium 100 MCG Oral Tablet (Levoxyl) Take 1 Tablet by mouth in the morning. (at least30 min prior to breakfast or other meds). 100 Tablet 3 predniSONE 1 MG Oral Tablet (Deltasone) Take 1 Tablet by mouth every other day. Denosumab 60 MG/ML Subcutaneous Solution Prefilled Syringe (Prolia) Inject 60 mg under the skin once. 1 Each 0 No current facility-administered medications for this visit. Past Medical History: Diagnosis Date Actinic keratosis Aortic valve stenosis, moderate 09/20/2016 Chronic sinusitis Closed compression fracture of L1 lumbar vertebra, with routine healing, subsequent encounter 06/13/2022 Female stress incontinence Hypothyroidism Left renal stone Medical marijuana use 11/28/2018 PMR (polymyalgia rheumatica) (HCC) Pure hypercholesterolemia 02/05/2021 Stasis dermatitis of both legs 07/27/2022 Status post total right knee replacement 05/03/2023 Family History Problem Relation Age of Onset Diabetes Mother Hypertension Mother Hyperlipidemia Mother Cancer Father liver No Past Hx Sister Cancer Brother 70 brain Other (pancreatitis) Brother Pancreatic cancer Son Cancer Son 48 pancreatic No Known Problems Son Social History Socioeconomic History Marital status: Number of children: 2 Occupational History Occupation: [employer] Comment: [employer] Tobacco Use Smoking status: Former Current packs/day: 0.00 Average packs/day: 0.1 packs/day for 5.0 years (0.5 ttl pk-yrs) Types: Cigarettes Start date: 02/27/1959 Quit date: 02/28/1964 Years since quittin.2 Passive exposure: Past Smokeless tobacco: Never Tobacco comments: smoked 1 pack a week; quit 1966 Vaping Use Vaping Use: Never used Substance and Sexual Activity Alcohol use: No Alcohol/week: 0.0 standard drinks of alcohol Comment: As of 05.23.2011, the last noted alcohol intake was 1 ounces. rare 2/year Drug use: Not Currently Types: Marijuana Comment: medical; rarely Sexual activity: Not Currently Partners: Male control/protection: Surgical Other Topics Concern Service No Blood Transfusions No Caffeine Concern No Occupational Exposure No Hobby Hazards No Sleep Concern No Stress Concern No Weight Concern No Special Diet No Back Care No Exercise Yes Seat Belt Yes Self-Exams Yes Social Determinants of Health Food Insecurity: No Food Insecurity (04/03/2023) Hunger Vital Sign Worried About Running Out of Food in the Last Year: Never true Ran Out of Food in the Last Year: Never true OBJECTIVE/PHYSICAL EXAMINATION: BP 136/86 | Pulse 76 | Resp 14 | Wt 66.2 kg (146 lb) | BMI 28.51 kg/m | BSA 1.67 m General: No acute distress. A+Ox3. HEENT: Normocephalic. Atraumatic. PERRL. EOMI. Conjunctiva and sclera clear. NECK: No carotid bruits. No JVD. Carotid upstrokes are brisk. Heart: RRR. S1 and S2 noted. No murmur. No rubs or gallops. PMI non displaced. Lungs: Clear to auscultation. No wheezes.No rhonchi. No rales. Abdomen: Normal bowel sounds. Soft. Nontender. No masses or organomegaly. No abdominal bruits. Extremities: No edema. No clubbing or cyanosis. Pulses: radial=2/4, posterior tibial=2/4, dorsalis pedis = 2/4. NEURO: No focal deficits. PSYCH: Appropriate affect and insight. DATA Labs & Imaging Reviewed Below: ECG 11/07/22 at [facility] NSR, 1st Deg AV Block 67 bpm QTc 437 ms 10/01/21 NSR, 1st Deg AV Block 62 bpm QTc 428 ms 10/29/19 SB 54 bpm QTc 400 ms Echocardiograms 11/16/2022 Interpretation Summary The examination is adequate to evaluate the referral indication. The aortic valve has three leaflets. The aortic valve is moderately calcified. Mild mitral regurgitation is present. The proximal ascending thoracic aorta is mildly enlarged, 3.8 cm. The Doppler assessment in 2D assessment of aortic valve stenosis are somewhat discordant. Moderate aortic valve stenosis is present based on Doppler measurements with peak CW velocity of 3.5 meters per second, mean [id number] mm Hg. The aortic valve stenosis however appears more severe based on the 2D measurement. The Doppler measurements are relatively unchanged compared to the previous study performed on 09/09/2021. Ongoing close clinical and echocardiographic surveillance of aortic stenosis is recommended. The qualitative LV ejection fraction is 60-64% (normal). 09/09/21 The examination is adequate to evaluate the referral indication. The left ventricular cavity size is normal. The LV wall thickness is normal. The left ventricular wall motion is normal. The qualitative LV ejection fraction is 60-64% (normal). The aortic valve has three leaflets. The aortic valve is moderately calcified. Moderate to severe aortic stenosis is present, peak aortic valve velocity 3.6 m/sec, mean aortic valve gradient 30 mm Hg There is no significant aortic regurgitation. Mild mitral regurgitation is present. Mild tricuspid regurgitation is present. ASSESSMENT/PLAN: 77 year old year old female 1. Aortic valve stenosis, moderate -Denies any change or decline in her functional capacity. -Plan for repeat echo Feb 2024, prior to following up with valve clinic - ECHO, COMPLETE (2D), TRANS-THORACIC; Future 2. HTN, goal below 140/90 -At target. Not currently on any medication therapy for HTN 3. Pure hypercholesterolemia -Recommend yearly lipid panel -Continue Atorvastatin DISPOSITION: Follow up 6 months or if symptoms worsen/fail to improve. All questions were answered to the patients satisfaction. Patient advised to report to ED with any and all emergencies. The patient agrees to the above plan and will call with additional questions or concerns. MISSY Campbell Cardiology, [facility] [address] [place] [address] I spent a total of 35 minutes on the date of service in preparation, delivery, and documentation ofthe care provided to Sheyla Street excluding any time spent in the performance of separately billed services. This chart was completed in part utilizing [employer] Speech Voice Recognition Software. Grammatical errors, random word insertions, pronoun errors, and incomplete sentences are an occasional consequence of this system due to software limitations, ambient noise, and hardware issues. Any formal questions or concerns about the content, text, or information contained within the body of this dictation should be directly addressed to the provider for clarification. documented in this encounter Nursing Notes * Madalyn Ballard LPN - 05/29/2023 8:33 AM EDT Examination Room: 6 Name: Sheyla Street Date of : 1945 Reason for Visit: Follow up Problems/Concerns: Denies cardiac complaint Interim Hosp(s): denies Chest Pain/SOB: denies MyChart Discussed: ALREADY ACTIVE Patient was instructed to not get up on the exam table until directed and assisted by their provider; patient is to remain seated in the chair/ wheelchair/ exam table for fall prevention and safety reasons. Patient is aware staff will assist stepping down off exam table with personnel. documented in this encounter Plan of Treatment Upcoming Encounters Date Type Department Care Team (Late st Contact Info) Description 06/05/2023 1:00 PM EDT Office Visit Family Practice [address], [place] [address] [place] [address] Reji Mendoza, [address] [place] [address] 06/22/2023 4:15 PM EDT Office Visit Dermatology Irma Pimentel [place] [address] [facility] [place] [address] Olena Andrea MD [address] [facility] [place] [address] 02/16/2024 11:00 AM EST Nurse Only Ancillary [address] [facility], [place] [address] [place] [address] College, Nurse Annual Wellness Visit [address] [facility] [address] [facility], [place] [address] Scheduled Orders Name Type Priority Associated Diagnoses Orde r Schedule ECHO, COMPLETE (2D), TRANS-THORACIC Echocardiology Routine Aortic valve stenosis, moderate Expected: 02/28/2024 (Approximate), Expires: 05/28/2024 Scheduled Procedures Name Priority Associated Diagnoses Date/Ti [...] D LEVEL ONCE IN A LIFETIME-USE SMARTSET# [id number] Completed 02/01/2023, 05/17/2018, 05/07/2010, Additional history exists [...] Not on filedocumented as of this encounter Visit Diagnoses Diagnosis Aortic valve stenosis, moderate- Primary Aortic valve disorders HTN, goal below 140/90 Unspecified essential hypertension Pure hypercholesterolemia documented in this encounter Advance Directives Documents on File Type Date Recorded Patient Loan Service Officer Expl anation TOM 09/29/2022 10:42 AM POL Healthcare Agents on File Name Relationship Healthcare Agent Relationship Communication Zulema Joseph Other - (no specific identity) Health Care Loan Service Officer (appointed verbally by patient or by statute hierarchy) Care Teams Folder Seamer Automatic Relationship Specialty Start Date End Date Reji Mendoza DO [address] [place] [address] PCP - General Internal Medicine 02/05/21 documented as of this encounter"
--- OUTSIDE RECORDS SUMMARY | 2023-06-13 08:55 | External Medical Summary | Summary of Care ---
Author Name Unknown Organization [facility] Address [address] [place] [address] Phone [phone] Care Team Providers Care Woodwork Salvage Inspector Name Role Phone Reji Mendoza DO Primary Care Provider [phone] Reason for Visit * Reason Comments Follow Up Encounter Details Date Type Department Care Team (Latest Contact Info) Description 06/05/2023 1:00 PM EDT Office Visit Family Practice [facility], [place] [address] [place] [address] Reji Mendoza DO [address] [place] [address] Primary osteoarthritis of left knee*; Age-related osteoporosis without current pathological fracture; PMR (polymyalgia rheumatica) ([facility]); Rheumatoid arthritis of multiple sites without rheumatoid factor ([facility]); Acquired hypothyroidism; Aortic valve stenosis, moderate; Pure hypercholesterolemia; Monoclonal paraproteinemia; MCI (mild cognitive impairment); Status post total right knee replacement Allergies Active Allergy Reactions Criticality Noted Date Comments Cephalexin Rash High 05/10/2022 Levofloxacin In D5w 03/30/2015 Nausea, Dizziness Penicillins Hives 12/08/1998 As an adult in her early 50's Sulfa Antibiotics 04/20/2000 Facial swelling in her 60's documented as of this encounter (statuses as of 06/05/2023) Medications Medication Sig Dispensed Refills Start Date [...] 09/22/2022 Active Vitamin D (Ergocalciferol) 1.25 MG (03427 UT) Oral Capsule (Drisdol) Take 1 Capsule [...] MG Oral Tablet (Deltasone)Indicatio ns:PMR (polymyalgia rheumatica) ([facility]) Take 1 Tablet by mouth every other day. 0 05/03/2023 Active documented as of this encounter (statuses as of 06/05/2023) Active Problems Problem Noted Date Diagnosed Date [...] of skin disorder 10/02/2013 Overview: Skin erosion 2014, Derm ADVANCE DIRECTIVE INFORMATION 12/16/2004 Overview: Yes, Patient instructed to provide copy of advance directive for provider to review and to be scanned into Electronic Medical Record Encounter for long-term (current) use of medicat ions 07/21/2003 Overview: ICD-10 update of inactive term Hypothyroidism Chronic sinusitis FEM STRESS INCONTINENCE PMR (polymyalgia rheumatica) documented as of this encounter (statuses as of 06/05/2023) Resolved Problems Problem Noted Date Diagnosed Date Resolved Date Gastroesophageal reflux dise ase with esophagitis 11/04/2020 02/05/2021 Atherosclerosis of aorta 06/25/201811/2020 Encounter for examination fo r normal comparison and control in clinical research program 06/13/2017 09/30/2019 Overview: DO NOT DELETE [facility] DETECT Study: Project # [id number], Restorative Aide: Shakeel Beck, PhD. SUMMARY: Goal: Establish test [...] contact study staff at ; after hours Restorative Aide via the [facility] sterilizer machine operator . Please contact study team before resolving/deleting from patients problem list. Study phone number: [phone]. Diagnosis changed due to Research Module. Go to Snapshot for study details. Encounter for examination fo r normal comparison and control in clinical research program 06/13/2017 10/28/2021 Overview: DO NOT DELETE - [facility] DETECT Study: Project # [id number], Restorative Aide: Hernan Garcia, MS, MPH. SUMMARY: Goal: Establish [...] contact study staff at ; after hours Restorative Aide via the [facility] sterilizer machine operator . - Please contact study team before resolving/deleting from patients problem list. Study phone number: [phone]. Diagnosis changed due to Research Module. Go to [employer] for study details. [id number] 11/22/200405/28 Overview: Renamed Per Clinical Trials Billing Project. Pt is a participant in the [employer] (Consortium of Rheumatology Researchers of [place]) national data collection study. For further information please call Dr Gregory Velasquez or Pooja Ratliff, RN, CCRC at [phone] [employer] OTHER*[id number] 11/22/2004 08/24/2009 Overview: Renamed Per Clinical Trials Billing Project. Pt is a participant in the [employer] (Consortium of Rheumatology Researchers of [place]) national data collection study. For further information please call Dr Gregory Velasquez or Pooja Ratliff RN, CCRC at [phone] Arthritis, rheumatoid 07/21/20032016 Polymyalgia rheumatica 07/04/200312/24 Myalgia and myositis 12/14/2002 017 HTN, goal below 140/90 04/01/200207/27 Actinic keratosis 12/03/2001 02/05/2021 Other chronic sinusitis 08/28 Reflux esophagitis Need for prophylactic hormon e replacement therapy (postmenopausal) 2016 documented as of this encounter (statuses as of 06/05/2023) Immunizations Name Administration Dates Next Due COVID-19 mRNA, LNP-s, No Pre serve, 2-Dose Series ([employer]) 05/27/2021,11/26/2020,05/16/2020,04/25 COVID-19, MRNA-LNP, 23-24, P F, 30 MCG/0.3 mL, 12 YRS AND ABOVE, IM [facility] 02/14/2023 Covid-19, Mrna, Lnp-s, Pf, B ivalent, 30 Mcg, IM, 12 yrs and above ([employer]) 11/23/2021 Pneumococcal Conjugate Vacc, 13 Valent (Prevnar) [...] Passive Smoke Exposure: Past Smokeless Tobacco: Never Tobacco Cessation:Counseling Given: Yes Comments:smoked 1 pack a week; quit 1966 Alcohol Use Standard Drinks/Week Comments No 0 [...] Sign Reading Time Taken Comments Blood Pressure 130/80 06/05/2023 1:14 PM EDT Pulse 76 06/05/2023 1:14 PM EDT Temperature 36.8 C (98.3 F) 06/05/2023 1:14 PM ED T Respiratory Rate 14 06/05/2023 1:14 PM EDT Oxygen Saturation 97% 06/05/2023 1:14 PM EDT Inhaled Oxygen Concentration - - Weight 66 kg (145 lb 6.4 oz) 06/05/2023 1:14 PM EDT Height 152.4 cm (5') 06/05/2023 1:14 PM EDT Body Mass Index 28.4 06/05/2023 1:14 PM EDT documented in this encounter Progress Notes * Reji Mendoza, - 06/05/2023 1:35 PM EDT SUBJECTIVE: Sheyla Street is a 77 year old female. 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 Chronic left knee pain is worsening. Right ankle pain is unchanged. The patient was seen by Dr. Otero on 04/12/2023. He recommended follow up Echo in1 year. Pruritus has improved. No chest pain or shortness of breath are present. Weight is stable and appetite is good. 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 Vitamin D (Ergocalciferol) 1.25 MG (79474 UT) Oral Capsule (Drisdol) Take 1 Capsule by mouth once aweek. Takes on Saturdays 5 Capsule 5 Folic Acid 1 MG Oral Tablet Take 1 Tablet by mouth in the morning. 90 Tablet 3 Levothyroxine Sodium 100 MCG Oral Tablet (Levoxyl) Take 1 Tablet by mouth in the morning. (at least30 min prior to breakfast or other meds). 100 Tablet 3 predniSONE 1 MG Oral Tablet (Deltasone) Take 1 Tablet by mouth every other day. Denosumab 60 MG/ML Subcutaneous Solution Prefilled Syringe (Prolia) Inject 60 mg under the skin once. 1 Each 0 Betamethasone Dipropionate Aug 0.05 % External Cream (Diprolene AF) Apply to bilateral lower legs with Unna boot change (bring to dermatology appointment) 50 g 1 Triamcinolone Acetonide 0.1 % External Cream (Aristocort) Apply to itchy areas on legs twice daily as needed 80 g 1 No current facility-administered medications for this visit. The patient's medication list was reviewed and updated as needed. Past Medical History: Diagnosis Date Actinic keratosis Aortic valve stenosis, moderate 09/20/2016 Chronic sinusitis Closed compression fracture of L1 lumbar vertebra, with routine healing, subsequent encounter 06/13/2022 Female stress incontinence Hypothyroidism Left renal stone Medical marijuana use 11/28/2018 PMR (polymyalgia rheumatica) (HCC) Pure hypercholesterolemia 02/05/2021 Stasis dermatitis of both legs 07/27/2022 Status post total right knee replacement 05/03/2023 Past Surgical History: Procedure Laterality Date ARTHROPLASTY KNEE TOTAL RTK COLONOSCOPY, DIAGNOSTIC (RECTUM) 06/25/2008 repeat in 10 years COLONOSCOPY, DIAGNOSTIC (RECTUM) 04/19/2023 diverticulosis/hemorrhoids/biopsies show adenomatous polyps/recall 3 years/COLONOSCOPY FLEXIBLE PROXIMAL DIAGNOSTIC performed by Chip Forde MD at ENDOSCOPY [facility] LAPAROSCOPY; CHOLECYSTECTOMY Cholecystectomy, Laproscopic LIGATE/CUT OVIDUCT(S) Tubal Ligation MAMMOGRAM - 1 BREAST 12/19/2003 normal, birad 2. Resume annual screening MAMMOGRAM - BILATERAL 12/17/2002 birad code 2 MAMMOGRAM - BILATERAL 12/21/2004 Birad code 2/benign findings MAMMOGRAM - BILATERAL 05/27/2008 normal repeat in one year MAMMOGRAM SCREENING-BILATERAL 12/14/2001 birad code 2 MAMMOGRAM SCREENING-BILATERAL 12/19/2003 birad 0, additional views done on right. MAMMOGRAM SCREENING-BILATERAL 12/29/2005 benign findings, yearly mammograms appropriate, birad code 2 MAMMOGRAM SCREENING-BILATERAL 01/03/2007 birad 2 MISCELLANEOUS ORDER ([facility] ONLY) 1 d&e and 1 d&c MISCELLANEOUS ORDER ([facility] ONLY) left wrist fracture; fixed with plate and screws REMOVE TONSILS & ADENOIDS, AGE 12+ Tonsillectomy/Adenoids,12+ Y/O REPAIR OF NASAL SEPTUM REVISE UPPER EYELID SUCTION REMOVE FAT TISSUE, TRUNK VAGINAL DELIVERY ONLY times 2 Review of patient's allergies indicates: Allergen Reactions Cephalexin Rash Levaquin [Levofloxacin In D5w] Nausea, Dizziness Penicillins Hives As an adult in her early 50's Sulfa Antibiotics Facial swelling in her 60's Review of Systems Constitutional: Negative for appetite change, fatigue and unexpected weight change. HENT: Negative for congestion, sore throat and trouble swallowing. Respiratory: Negative for cough, shortness of breath and wheezing. Cardiovascular: Negative for chest pain, palpitations and leg swelling. Gastrointestinal: Negative for abdominal pain, blood in stool, constipation, diarrhea, nausea and vomiting. Genitourinary: Negative for dysuria and hematuria. Musculoskeletal: Negative for back pain. Left knee pain has worsened Neurological: Negative for dizziness, syncope and headaches. Psychiatric/Behavioral: Negative for confusion, decreased concentration and sleep disturbance. OBJECTIVE: BP 130/80 | Pulse 76 | Temp 36.8 C (98.3 F) | Resp 14 | Ht 1.524 m (5') | Wt 66 kg (145 lb 6.4 oz) | SpO2 97% | BMI 28.40 kg/m | BSA 1.67 m Physical Exam Vitals and nursing note reviewed. Constitutional: General: She is not in acute distress. Appearance: Normal appearance. She is not toxic-appearing. HENT: Head: Normocephalic and atraumatic. Cardiovascular: Rate and Rhythm: Normal rate and regular rhythm. Heart sounds: Murmur heard. Systolic murmur is present with a grade of 3/6. Pulmonary: Effort: Pulmonary effort is normal. Breath sounds: Normal breath sounds. No wheezing, rhonchi or rales. Abdominal: General: Bowel sounds are normal. There is no distension. Palpations: Abdomen is soft. Tenderness: There is no abdominal tenderness. Musculoskeletal: Right lower leg: No edema. Left lower leg: No edema. Neurological: Mental Status: She is alert. Mental status is at baseline. Motor: No weakness. Gait: Gait normal. Comments: Mild memory loss is stable Psychiatric: Mood and Affect: Mood normal. Behavior: Behavior normal. Thought Content: Thought content normal. PLAN AND ASSESSMENT: Primary osteoarthritis of left knee (Primary) Patient scheduled for Left knee replacement on 06/13/2023 Stable for surgery per Cardiology Age-related osteoporosis without current pathological fracture - DEXA SCAN/BONE MINERAL AXIAL; Future; Expected date: 06/05/2023 Continue Calcium and Vitamin D PMR (polymyalgia rheumatica) (HCC) Continue Prednisone 1 mg every other day Rheumatoid arthritis of multiple sites without rheumatoid factor (HCC) Continue to follow with Rheumatology Acquired hypothyroidism Continue Levothyroxine Aortic valve stenosis, moderate Stable. Continue to follow with Cardiology Repeat Echo in 02/2024 Pure hypercholesterolemia Continue Atorvastatin Monoclonal paraproteinemia MCI (mild cognitive impairment) Stable Status post total right knee replacement Follow-up: Return in about 4 months (around 10/05/2023), or if symptoms worsen or fail to improve. | Check-out note: Schedule Dexa Reji Mendoza DO 1:40 PM 06/05/2023 documented in this encounter Nursing Notes * Yuliana Moore LPN - 06/05/2023 1:13 PM EDT Here for follow up, sister in law stepped on right foot. Was seen by Dr Yoon documented in this encounter Plan of Treatment Upcoming Encounters Date Type Department Care Team (Late st Contact Info) Description 06/22/2023 4:15 PM EDT Office Visit Dermatology [facility] Jackie Vazquez [address] [facility] [place] [address] Olena Andrea MD 200 [facility] [place] [address] 10/05/2023 11:00 AM EDT Office Visit Family Practice 65 [facility] [address] [place] [address] Reji Mendoza, DO 293 [place] [address] 10/09/2023 3:30 PM EDT Imaging Radiology, [facility] [address] [place] [address] 12/11/2023 8:30 AM EDT Office Visit Cardiology, [facility] [address] [place] [address] Rekha Milner CRNP 132 [place] [address] 02/16/2024 11:00 AM EST Nurse Only Ancillary 65 [facility] [address] [place] [address] College, Nurse Annual Wellness Visit [address] [place] [address] 03/06/2024 9:30 AM EST Cardiac Studies Cardiac Studies, [facility] [address] [place] [address] Scheduled Orders Name Type Priority Associated Diagnoses Orde r Schedule DEXA SCAN/BONE MINERAL AXIAL Medical Imaging Routine Age-related osteoporosis without current pathological fracture Expected: 06/05/2023 (Approximate), Expires: 07/04/2024 Scheduled Procedures Name Priority Associated Diagnoses Date/Ti [...] D LEVEL ONCE IN A LIFETIME-USE SMARTSET# [id number] Completed 02/01/2023, 05/17/2018, 05/07/2010, Additional history exists [...] as of this encounter Visit Diagnoses Diagnosis Primary osteoarthritis of left knee- Primary Primary localized osteoarthrosis, lower leg Age-related osteoporosis without current pathological fracture Senile osteoporosis PMR (polymyalgia rheumatica) (HCC) Polymyalgia rheumatica Rheumatoid arthritis of multiple sites without rheumatoid factor (HCC) Rheumatoid arthritis Acquired hypothyroidism Unspecified hypothyroidism Aortic valve stenosis, moderate Aortic valve disorders Pure hypercholesterolemia Monoclonal paraproteinemia MCI (mild cognitive impairment) Mild cognitive impairment, so stated Status post total right knee replacement documented in this encounter Advance Directives Documents on File Type Date Recorded Patient Literature Professor Expl anation TOM 09/29/2022 10:42 AM POL Healthcare Agents on File Name Relationship Healthcare Agent Relationship Communication Zulema Joseph Other - (no specific identity) Health Care Literature Professor (appointed verbally by patient or by statute hierarchy) Care Teams Woodwork Salvage Inspector Relationship Specialty Start Date End Date Reji Mendoza DO [address] [place] [address] PCP - General Internal Medicine 02/05/21 documented as of this encounter"
--- OUTSIDE RECORDS SUMMARY | 2023-06-13 08:55 | External Medical Summary | Summary of Care ---
Author Name Unknown Organization [facility] Address [address] [place] [address] Phone [phone] Care Team Providers Care Configuration Developer Name Role Phone Reji Mendoza DO Primary Care Provider [phone] Encounter Details Date Type Department Care Team (Late st Contact Info) Description 05/29/2023 Telephone Cardiology, [facility] [address] [place] [address] Rekha Milner CRNP [address] [place] [address] Allergies Active Allergy Reactions Criticality Noted Date Comments Cephalexin Rash High 05/10/2022 Levofloxacin In D5w 03/30/2015 Nausea, Dizziness Penicillins Hives 12/08/1998 As an adult in her early 50's Sulfa Antibiotics 04/20/2000 Facial swelling in her 60's documented as of this encounter (statuses as of 06/01/2023) Medications Medication Sig Dispensed Refills Start Date [...] 09/22/2022 Active Vitamin D (Ergocalciferol) 1.25 MG (53726 UT) Oral Capsule (Drisdol) Take 1 Capsule [...] MG Oral Tablet (Deltasone)Indicatio ns:PMR (polymyalgia rheumatica) ([facility]) Take 1 Tablet by mouth every other day. 0 05/03/2023 Active documented as of this encounter (statuses as of 06/01/2023) Active Problems Problem Noted Date Diagnosed Date [...] as of this encounter (statuses as of 06/01/2023) Resolved Problems Problem Noted Date Diagnosed Date Resolved Date Gastroesophageal reflux dise ase with esophagitis 11/04/2020 02/05/2021 Atherosclerosis of aorta 06/25/201811/2020 Encounter for examination fo r normal comparison and control in clinical research program 06/13/2017 09/30/2019 Overview: DO NOT DELETE [email or web address] DETECT Study: Project # [id number], Reclamation Furnace Operator: Shakeel Beck, PhD. SUMMARY: Goal: Establish test [...] contact study staff at ; after hours Reclamation Furnace Operator via the [facility] still operator helper . Please contact study team before resolving/deleting from patients problem list. Study phone number: [phone]. Diagnosis changed due to Research Module. Go to Snapshot for study details. Encounter for examination fo r normal comparison and control in clinical research program 06/13/2017 10/28/2021 Overview: DO NOT DELETE - [email or web address] DETECT Study: Project # [id number], Reclamation Furnace Operator: Hernan Garcia, MS, MPH. SUMMARY: Goal: Establish [...] contact study staff at ; after hours Reclamation Furnace Operator via the [facility] still operator helper . - Please contact study team before resolving/deleting from patients problem list. Study phone number: [phone]. Diagnosis changed due to Research Module. Go to Snapshot for study details. [id number] 11/22/200405/28 Overview: Renamed Per Clinical Trials Billing Project. Pt is a participant in the [employer] (Consortium of Rheumatology Researchers of [place]) national data collection study. For further information please call Dr Gregory Velasquez or Pooja Ratliff, RN, CCRC at [phone] [facility] RESEARCH OTHER*[id number] 11/22/2004 08/24/2009 Overview: Renamed Per Clinical Trials Billing Project. Pt is a participant in the [employer] (Consortium of Rheumatology Researchers of [place]) national data collection study. For further information please call Dr Gregory Velasquez or Pooja Ratliff, RN, CCRC at [phone] Arthritis, rheumatoid 07/21/20032016 Polymyalgia rheumatica 07/04/200312/24 Myalgia and myositis 12/14/2002 017 HTN, goal below 140/90 04/01/200207/27 Actinic keratosis 12/03/2001 02/05/2021 Other chronic sinusitis 08/28 Reflux esophagitis Need for prophylactic hormon e replacement therapy (postmenopausal) 2016 documented as of this encounter (statuses as of 06/01/2023) Immunizations Name Administration Dates Next Due COVID-19 mRNA, LNP-s, No Pre serve, 2-Dose Series ([employer]) 05/27/2021,11/26/2020,05/16/2020,04/25 COVID-19, MRNA-LNP, 23-24, P F, 30 MCG/0.3 mL, 12 YRS AND ABOVE, IM ([facility]) 02/14/2023 Covid-19, Mrna, Lnp-s, Pf, B ivalent, [...] = 0.6 oz pure alcohol) As of 3.2011, the last noted alcohol intake was 1 [...] on file documented as of this encounter Miscellaneous Notes * Telephone Encounter - Yuan Cerna OSA - 06/01/2023 12:52 PM EDT Patient has been called and is set up for the ECHO on 03/06/24 and the Curly FU for 12/11/23 * Telephone Encounter - Espinoza Childs OSA - 05/29/2023 8:59 AM EDT Please call and schedule 6 month return. Thank you documented in this encounter Plan of Treatment Upcoming Encounters Date Type Department Care Team (Late st Contact Info) Description 06/05/2023 1:00 PM EDT Office Visit Family Practice [address], [place] [address] [facility] [place] [address] Reji Mendoza DO 293 [place] [address] 06/22/2023 4:15 PM EDT Office Visit Dermatology [facility] 200 [facility] [place], [place] [address] Olena Andrea MD 200 [facility] [place] [address] 12/11/2023 8:30 AM EDT Office Visit Cardiology, [facility] [address] [place] [address] Rekha Milner CRNP [address] [place] [address] 02/16/2024 11:00 AM EST Nurse Only Ancillary 65 [facility] [address] [place] [address] College, Nurse Annual Wellness Visit [address] [address] 03/06/2024 9:30 AM EST Cardiac Studies Cardiac Studies, [facility] [address] [place] [address] Scheduled Procedures Name Priority Associated Diagnoses Date/Ti [...] D LEVEL ONCE IN A LIFETIME-USE SMARTSET# [id number] Completed 02/01/2023, 05/17/2018, 05/07/2010, Additional history exists [...] Not on filedocumented as of this encounter Advance Directives Documents on File Type Date Recorded Patient Polymerization Kettle Operator Expl anation POLST 09/29/2022 10:42 AM POLST Healthcare Agents on File Name Relationship Healthcare Agent Relationship Communication Zulema Joseph Other - (no specific identity) Health Care Polymerization Kettle Operator (appointed verbally by patient or by statute hierarchy) Care Teams Configuration Developer Relationship Specialty Start Date End Date Reji Mendoza DO [address] [place] [address] PCP - General Internal Medicine 02/05/21 documented as of this encounter
--- OUTSIDE RECORDS SUMMARY | 2023-06-13 08:55 | External Medical Summary | Summary of Care ---
Author Name Unknown Organization [facility] Address [address] [place] [address] Phone [phone] Care Team Providers Care Manager Inpatient Name Role Phone Reji Mendoza DO Primary Care Provider Reason for Referral * Precert (Within 10 days (routine)) - Authorized Specialty Diagnoses / Procedures Referred By Contac t Referred To Contact Cardiac Studies Diagnoses Aortic valve stenosis, moderate Procedures ECHO, COMPLETE (2D), TRANS-THORACIC Rekha Milner CRNP [address] [place] [address] Referral ID Status Reason Start Date Expiration Date V isits Requested Visits Authorized [id number] Authorized Precert 02/28/2024 999 999 Reason for Visit * Reason Comments Follow Up Encounter Details Date Type Department Care Team (Latest Contact Info) Description 05/29/2023 8:30 AM EDT Office Visit Cardiology, [facility] [address] [place] [address] Rekha Milner CRNP [address] [place] [address] Aortic valve stenosis, moderate*; HTN, goal below [...] 09/22/2022 Active Vitamin D (Ergocalciferol) 1.25 MG (98490 UT) Oral Capsule (Drisdol) Take 1 Capsule [...] Oral Tablet (Deltasone)Indicatio ns:PMR (polymyalgia rheumatica) ([facility]) Take 1 Tablet by mouth every other [...] program 06/13/2017 09/30/2019 Overview: DO NOT DELETE [facility] DETECT Study: Project # [id number], Electric Power Line Examiner: Shakeel Beck, PhD. SUMMARY: Goal: Establish test [...] contact study staff at ; after hours Electric Power Line Examiner via the [facility] hospital felling machine operator . Please contact study team before resolving/deleting from patients problem list. Study phone number: [phone]. Diagnosis changed due to Research Module. Go to Snapshot for study details. Encounter for examination fo r normal comparison and control in clinical research program 06/13/2017 10/28/2021 Overview: DO NOT DELETE - [facility] FLY Study: Project # [id number], Electric Power Line Examiner: Hernan Garcia, MS, MPH. SUMMARY: Goal: Establish [...] contact study staff at ; after hours Electric Power Line Examiner via the [facility] hospital felling machine operator . - Please contact study team before resolving/deleting from patients problem list. Study phone number: [phone]. Diagnosis changed due to Research Module. Go to [employer] for study details. [id number] 11/22/200405/28 Overview: Renamed Per Clinical Trials Billing Project. Pt is a participant in the [employer] (Consortium of Rheumatology Researchers of [place]) national data collection study. For further information please call Dr Gregory Velasquez or Pooja Ratliff, RN, CCRC at [phone] [facility] RESEARCH OTHER*[id number] 11/22/2004 08/24/2009 Overview: Renamed Per Clinical Trials Billing Project. Pt is a participant in the [employer] (Consortium of Rheumatology Researchers of [place]) national data collection study. For further information please call Dr Gregory Velasquez or Pooja Ratliff RN, CCRC at [phone] Arthritis, rheumatoid 07/21/20032016 Polymyalgia rheumatica 07/04/200312/24 Myalgia and myositis 12/14/2002 017 HTN, goal below 140/90 04/01/200207/27 Actinic keratosis 12/03/2001 02/05/2021 Other chronic sinusitis 08/28 Reflux esophagitis Need for prophylactic hormon e replacement therapy (postmenopausal) 2016 documented as of this encounter (statuses as of 05/29/2023) Immunizations Name Administration Dates Next Due COVID-19 mRNA, LNP-s, No Pre serve, 2-Dose Series (KAL) 05/27/2021,11/26/2020,05/16/2020,03/31 COVID-19, MRNA-LNP, 23-24, P F, 30 MCG/0.3 mL, 12 YRS AND ABOVE, IM (Ridemakerz-Comirnat) 02/14/2023 Covid-19, Mrna, Lnp-s, Pf, B ivalent, 30 Mcg, IM, 12 yrs and above (Pfizer) 11/23/2021 Pneumococcal Conjugate Vacc, 13 Valent (Prevnar) 2016 Pneumococcal Polysaccharide PPV23 (Pneumovax) 07/01/2009,05/12/2004 RSV Vac., Recomb, Adjuvant, PF,0.5 Ml (Arexvy) 11/02/2022 Seasonal Influenza, PF, 6 M & above, IM , (FluLaval or Fluzone) 2017 Seasonal Influenza, Quadriva lent Hd (Fluzone Hd) 11/02/2022,2021,11/04/2020 Seasonal Influenza, Quadriva lent Hd, 65+ Yrs 11/12/2019 Seasonal Influenza, Quadriva lent, No Preserve, IM 11/12/2019,2016,2015,10/29 Seasonal Influenza, Split, I IV3, No Preserve, Inj 11/26/2008 Seasonal Influenza, Split, I IV3, With Preserve, Inj 12/17/2013,11/17/2012,11/14/2011,12/29,01/05/2010,11/26/2008,12/17/19 08,12/07/2006,01/10/2006,01/05/2005,1 03/05/2002,01/03/2002,02/02/2000 01/03/2003 Seasonal Influenza, Trivalen t, Adjuvanted, 65+ yrs 11/28/2018 TD - Tetanus/Diptheria (ADULT) 05/09/2003,1992 TDAP (age 10 and older)(Boostrix) 09/30/2013 Zoster [...] AM EDT 05/26/2023 Cardiology Follow Up Primary Medical Claims Processor: CELINE; Formerly Dr. Pearl Cardiac Problems: Aortic [...] g 1 Vitamin D (Ergocalciferol) 1.25 MG (12706 UT) Oral Capsule (Drisdol) Take 1 Capsule [...] Number of children: 2 Occupational History Occupation: [employer] Comment: PK Clean Tobacco Use Smoking status: Former Current packs/day: [...] brisk. Heart: RRR. S1 and S2 noted. +2/6 systolic murmur. No rubs or gallops. PMI non displaced. Lungs: Clear to auscultation. No wheezes.No rhonchi. No rales. Abdomen: Normal bowel sounds. Soft. Nontender. No masses or organomegaly. No abdominal bruits. Extremities: No edema. No clubbing or cyanosis. Pulses: radial=2/4, posterior tibial=2/4, dorsalis pedis = 2/4. NEURO: No focal deficits. PSYCH: Appropriate affect and insight. DATA Labs & Imaging Reviewed Below: ECG 11/07/22 at [facility] NSR, 1st Deg AV Block 67 bpm [...] velocity of 3.5 meters per second, mean [id number] mm Hg. The aortic valve stenosis however [...] additional questions or concerns. [facility], [address] [address] I spent a total of 35 minutes on the date of service in preparation, delivery, and documentation ofthe care provided to Sheyla Street excluding any time spent in the performance of separately billed services. This chart was completed in part utilizing [employer] Speech Voice Recognition Software. Grammatical errors, random [...] PM EDT Office Visit Family Practice [address] [facility] [address] [place] [address] Reji Mendoza DO [address] [place] [address] 06/22/2023 4:15 PM EDT [facility] [address] [facility] [place] [address] Olena Andrea MD [address] [facility] [place] [address] 02/16/2024 11:00 AM EST Nurse Only Ancillary [address] [facility] [address] [place] [address] College, Nurse Annual Wellness Visit [address] [place] [address] Scheduled Orders Name Type Priority Associated Diagnoses [...] D LEVEL ONCE IN A LIFETIME-USE SMARTSET# [id number] Completed 02/01/2023, 05/17/2018, 05/07/2010, Additional history exists [...] Documents on File Type Date Recorded Patient Insurance Appraiser Expl anation POLST 09/29/2022 10:42 AM POLST Healthcare Agents on File Name Relationship Healthcare Agent Relationship Communication Zulema Joseph Other - (no specific identity) Health Care Insurance Appraiser (appointed verbally by patient or by statute hierarchy) Care Teams Manager Inpatient Relationship Specialty Start Date End Date Reji Mendoza DO [address] [place] [address] PCP - General Internal Medicine 02/05/21 documented as of this encounter"
--- NOTE | 2023-06-13 09:08 | XRay Report ---
XR knee LT 1 or 2V routine CLINICAL HISTORY: Postoperative evaluation. COMPARISON: Left knee radiographs November 03, 2022. FINDINGS: Alignment of the total left knee arthroplasty is anatomic. There is no periprosthetic frac ture or unexpected radiopaque foreign body. There are skin miguel. IMPRESSION: Expected findings following total left knee arthroplasty. ACT 112: Negative or not required by law. Electronically signed by: Maxwell Rocha M.D. 06/13/2023 9:07 AM
--- NOTE | 2023-06-13 09:58 | Anesthesiology Progress Note ---
Date of Service June 13, 2023 Anesthesia Post Procedure Vital Signs Vital Signs: Temp Pulse Pulse Resp BP BP Pulse Ox 06/13/23 09:50 85 16 103/58 L 95 06/13/23 09:40 36.4 C L 86 18 101/55 L 95 06/13/23 09:30 87 16 101/59 L 95 06/13/23 09:20 89 20 102/55 L 96 06/13/23 09:10 85 18 111/56 L 99 06/13/23 09:00 86 18 105/53 L 97 06/13/23 08:50 88 16 103/57 L 98 06/13/23 08:43 36.2 C L 91 H 16 111/64 97 06/13/23 05:29 36.6 C 73 20 134/71 97 O2 Del Method O2 Flow Rate 06/13/23 09:50 Room Air 06/13/23 09:40 Room Air 06/13/23 09:30 Room Air 06/13/23 09:20 Room Air 06/13/23 09:10 Oxymask 4 06/13/23 09:00 Oxymask 4 06/13/23 08:50 Oxymask 4 06/13/23 08:43 Oxymask 6 06/13/23 05:29 Room Air Notes Mental Status: alert / awake / arousable Patient Amnestic to Procedure: Yes Nausea / Vomiting: adequately controlled Pain: adequately controlled Airway Patency, RR, SpO2: stable & adequate BP & HR: stable & adequate Hydration State: stable & adequate Neuraxial Anesthesia: was administered and sensory block is resolving Anesthetic Complications: no major complications apparent
[2023-06-13] MEDS ORDERED: NALOXONE HCL 0.4 MG/1 ML VIAL/CARP IV PRN (10:22)
[2023-06-13] MEDS ORDERED: ONDANSETRON INJ 2 MG/ML 2 ML VIAL IV PRN (10:22)
[2023-06-13] MEDS ORDERED: HYDROmorphone INJ 0.5 MG/0.5 ML SYR IV PRN (10:22)
[2023-06-13] MEDS ORDERED: METOCLOPRAMIDE HCL INJ 5 MG/ML 2 ML VIAL IV PRN (10:22)
[2023-06-13] MEDS ORDERED: bisacodyL 10 MG SUPP PR PRN (10:22)
[2023-06-13] MEDS ORDERED: MAGNESIUM HYDROXIDE SUSP 30 ML UDC PO PRN (10:22)
[2023-06-13] MEDS ORDERED: ALUMINUM/MAGNESIUM SUSP 30 ML UDC PO PRN (10:22)
[2023-06-13] MEDS ORDERED: AMINO ACID SYNERGY PO SCH (10:22)
[2023-06-13] MEDS: ceFAZolin 2,000 MG/15 ML IV PUSH IV ONE (10:22)
[2023-06-13] MEDS: FOLIC ACID 1 MG TAB PO SCH (11:01)
[2023-06-13] MEDS: DOCUSATE SODIUM 100 MG CAP PO SCH (11:01)
[2023-06-13] MEDS: ATORVASTATIN 10 MG TAB PO SCH (11:01)
[2023-06-13] MEDS: ASPIRIN 81 MG ECTAB PO SCH (11:01)
[2023-06-13] MEDS: MULTIVITAMIN TAB PO SCH (11:02)
[2023-06-13] MEDS: CALCIUM 600MG + VIT D 400 IU TAB PO SCH (11:02)
[2023-06-13] MEDS: SODIUM CHLORIDE 0.9% 1,000 ML IV SCH (11:02)
[2023-06-13] MEDS: KETOROLAC TROMETHAMINE 15 MG/ML VIAL IV SCH (11:02)
[2023-06-13] MEDS: TRANEXAMIC ACID / 0.7% NACL 1,000 MG/100 ML BAG IV SCH (13:51)
[2023-06-13] MEDS: ceFAZolin 1000MG 1,000 MG/7.5 ML SYR IV SCH (15:24)
[2023-06-13] MEDS: ASCORBIC ACID 500 MG TAB PO SCH (17:09)
[2023-06-13] MEDS: SENNA 8.6 MG TAB PO SCH (20:58)
[2023-06-14] MEDS: LEVOTHYROXINE SODIUM 100 MCG TABLET PO SCH (05:35)
[2023-06-14 07:56] LABS: Hematocrit (blood only) 34.2 % (37.0-47.0); Hemoglobin 11.9 g/dl (12.0-16.0); Mean Corpuscular Hemoglobin 31.3 pg (25.0-34.0); Mean Corpuscular Hgb Conc 34.8 g/dL (32.0-36.0); Mean Platelet Volume 10.2 fL (9.4-12.4); Platelet Count 211 K/uL (130-400); RDW Coefficient of Variation 12.4 % (11.5-14.5); RDW Standard Deviation 40.6 fL (36.4-46.3); White Blood Count 12.28 K/ul (4.8-10.8)
[2023-06-14] MEDS: oxyCODONE HCL IR 5 MG TAB (IMMEDIATE RELEASE) PO PRN (08:04)
[2023-06-14] MEDS: predniSONE 1 MG TAB PO SCH (08:05)
[2023-06-14] MEDS: dexAMETHasone 10 MG in SYRINGE 0 ML IV SCH (08:06)
[2023-06-14 08:12] LABS: Creatinine Clr Calc Pharmacy 57.8 ml/min; Est GFR (African American) 96.4 ml/min; Est GFR (Non-African American) 83.2 ml/min; Potassium 3.6 mmol/L (3.5-5.1)
--- NOTE | 2023-06-14 11:26 | Orthopedic Progress Note ---
Date of Service June 14, 2023 Assessment & Plan (1) Status post left knee replacement: Overall, she is doing quite well today with good pain control to the left knee. She has participated with physical therapy working on ambulation and range of motion exercises. I did have a discussion with physical therapy as well as Occupational Therapy today in which they feel that in her current state with her mild confusion, she would not be safe to return home on her own. Her current living situation is that she lives alone. She has stated to case management as well as to physical therapy that she would be going home with her [id number]. She did verbalize to occupational therapy although that she did not like her [id number] and that she would not allow her to be in her home 24 hours a day. With this in mind, I did have a discussion with her of possibly talking about going to a prison facility. She seems to be more on board about it after my conversation with her today. I did update the case management about this. I do feel that with her acute confusion and with her not following p hysical therapy safety commands, that may be unsafe for her to be discharged to home unless we have a guarantee that the usigsj-fn-kug will be later to monitor her for 24 hours. I will hold off on discharge at this point until case management discusses acute rehabilitation versus prison facility upon discharge. Will follow. Subjective . Sheyla was seen and evaluated this morning resting comfortably in no apparent distress. She notes that her pain is well-controlled to the left knee. She does seem a little confused today about certain events in the patient's care team staff also reports that she has been trying to get out of bed/chair on her own without the use of a walker multiple times today. She has worked with physical therapy today in which they state that she did pretty well with ambulation but did not follow safety commands well. She denies any other concerns today. Review of Systems All systems reviewed & are unremarkable except as noted in HPI & below. Physical Exam . On physical examination of left knee, dressings are clean, dry, intact. Her leg is out in full extension. She has active plantarflexion dorsiflexion of left ankle. +2 DP and PT pulses. Less than 2-second capillary refill. Normal sensation. Neurovascular intact. Results & Data Results & Data Laboratory Results . Diagnostic Findings . Postoperative x-rays of the left knee show prosthesis to be in anatomical alignment with no signs of fracture complication or loosening. PG Care Time/CCT Total # of Minutes Spent Total Time Spent with Patient: Total time spent is greater than 50% in coordination of care (as documented) at patient's floor/unit and/or counseling patient: Coding Level of Care Code 65013 Post Operative Follow-Up Diagnoses Status post left knee replacement Z96.652
--- NOTE | 2023-06-15 10:05 | Orthopedic Progress Note ---
Date of Service June 15, 2023 Assessment & Plan (1) Status post left knee replacement: Overall, she is doing quite well today with good pain control to the left knee. She will work with physical therapy today to work on ambulation and range of motion exercises. She is currently on aspirin for DVT prophylaxis. She is in agreement now to go to a shelter facility upon discharge. They currently have a referral out for [facility]. She is stable from an orthopedic standpoint for discharge whenever she gets accepted and a bed is available. Dressings may be changed today and replaced with a ABD with a PHUONG hose holding the dressing in place. She will follow-up with Dr. Yoon in 2 weeks for postoperative management. Charo Osman was seen and evaluated this morning resting comfortably in no apparent distress. She notes that her pain is well-controlled to the left knee. She does seem a little confused today about certain events and the patient's care team also reports that she has been trying to get out of bed/chair on her own without the use of a walker. Her banckk-pa-jeg is currently sitting in the room with her today. She is resting comfortably and has not tried to get up during my conversation with her. She has worked with physical therapy yesterday in which they state that she did pretty well with ambulation but did not follow safety commands well. She has yet to work with them today. She denies any other concerns today. Review of Systems All systems reviewed & are unremarkable except as noted in HPI & below. Physical Exam .On physical examination of left knee, dressings are clean, dry, intact. Her leg is out in full extension. She has active plantarflexion dorsiflexion of left ankle. +2 DP and PT pulses. Less than 2-second capillary refill. Normal sensation. Neurovascular intact. Results & Data Results & Data Laboratory Results . Diagnostic Findings . PG Care Time/CCT Total # of Minutes Spent Total Time Spent with Patient: Total time spent is greater than 50% in coordination of care (as documented) at patient's floor/unit and/or counseling patient: Coding Level of Care Code 85086 Post Operative Follow-Up Diagnoses Status post left knee replacement Z96.652
--- NOTE | 2023-06-16 13:04 | Surgery Progress Note ---
Date of Service June 16, 2023 Assessment & Plan (1) Status post left knee replacement: Plan: 77-year-old female postop day 3 from a left knee replacement. She has been troubled with a bit of confusion which seems to be clearing up. Her pains been controlled. She is neurologically intact. Just waiting for placement. She is hoping to go to rehab. Plan: 1. DVT prophylaxis includes teds, SCDs, aspirin twice a day. 2. PT/OT. Weight-bear as tolerated left total knee protocol. 3. Pain control doing okay with current pain regimen. We need to really try and hold narcotics to avoid confusion issues. Seems like she is clearing up. 4. Disposition hoping to discharge her to the rehab. Just waiting for approval. Admission and Anticipated Discharge Date Admission Date: June 13, 2023 Subjective 77-year-old female now well postop day 3 from a left knee replacement. She been bothered by little bit of confusion. Pains been controlled. She is resting comfortably in bed this morning. Had a reasonable night by nursing report. Physical Exam Physical Exam: Physical examination was a pleasant comfortable female. She is resting and sleeping in bed this morning. Examination of the left leg reveals just a little bit of bloody drainage in the dressing. She can dorsiflex and plantarflex her foot appropriately. She is neurologically intact. Got brisk refill. Results & Data Vital Signs (Past 12 Hours) Vital Signs Temp Pulse Resp BP Pulse Ox O2 Del Method 06/16/23 08:17 36.6 C 70 16 142/74 H 95 Room Air PG Care Time/CCT Total # of Minutes Spent Total Time Spent with Patient: Total time spent is greater than 50% in coordination of care (as documented) at patient's floor/unit and/or counseling patient: Coding Level of Care Code 26725 Post Operative Follow-Up Diagnoses Status post left knee replacement Z96.652
--- NOTE | 2023-06-16 14:21 | Discharge Summary ---
Date of Service June 16, 2023 Principal Diagnosis Same as "Discharge Diagnosis" noted below under Discharge Instructions. Discharge Exam .On physical examination of left knee, dressings are clean, dry, intact. Her leg is out in full extension. She has active plantarflexion dorsiflexion of left ankle. +2 DP and PT pulses. Less than 2-second capillary refill. Normal sensation. Neurovascular intact. Discharge Data Procedures Performed Operation Date: 06/13/23 07:00 Actual Procedures p Left Total Knee Arthroplasty(Left) - Deepak Yoon MD Ordered Studies 06/13/23 05:00 US - OR guided needle placemen Routine Hospital Course (1) Status post left knee replacement: On June 13, 2023, Sheyla arrived at [facility] and underwent a left total knee arthroplasty performed by Dr. Yoon with no complications. She had a spinal anesthetic. Postoperatively, she was started on aspirin for DVT prophylaxis and transferred to the general orthopedic floor in stable condition. Her hospital course was uneventful. On postoperative day #1, her vital signs are stable and her pain is well-controlled. She participated well with physical therapy working on ambulation and range of motion exercises. She did state that she lives alone and did not know if family would be able to come out to take care of her. She was open to a referral out to a [place] [facility] facility upon discharge for rehabilitation. Case management began working on this. Insurance authorization and bed placement were then underway. No other significant events occurred on this day. No other significant events occurred on postoperative day #2. She was still waiting on insurance authorization and bed placement. On postoperative day #3, her vital signs are stable and her pain is well- controlled. She again participated well with physical therapy working on ambulation and range of motion exercises. Insurance authorization was denied and she discussed with her family member the possibility of just going home with home health. Is agreed that the family would be able to help her if she was to be discharged home today with home health. She was then discharged home in stable condition. She will follow-up with Dr. Yoon in 2 weeks for postoperative management. PG Care Time/CCT Total # of Minutes Spent Total Time Spent with Patient: Total time spent is greater than 50% in coordination of care (as documented) at patient's floor/unit and/or counseling patient: Discharge Plan Discharge Items Patient Disposition: Home - Home Health Services Reason For Visit: DJD Knee Left Discharge Diagnosis: Left Knee Replacement Activity: Per Instructions section Weightbearing: Full weightbearing Non-emergency contact: Surgeon Call non-emergency contact if: you have any medication questions Follow-up/Referrals: Reji Mendoza, [Primary Care Provider] - Diet: Regular Addtl Attending Provider Instructions: ACTIVITY RECOMMENDATIONS: Physical Therapy: * You will go to physical therapy three times each week for four to six weeks after your surgery in order to regain your knee range of motion and to retrain your knee to work properly. * It is just as important to make sure you are getting your knee perfectly straight as it is to regain your knee bend. * Taking a pain pill an hour before therapy can help you have a more productive and comfortable therapy session. Home Exercise: * You were shown a series of exercises (heel props, heel slides, etc.) in the hospital. Do these exercises three to four times each day including the exercises you were shown in physical therapy. Walking: * Get up and walk several times each day. For the first four weeks, try not to stand or walk for more than one hour at a time. If you do stand or walk for more than one hour, you will not hurt anything, but your knee and leg will likely swell. * As you feel comfortable, you may change from the walker or crutches to a cane and then to independent walking. MEDICATIONS: New Medicine: * You will likely be taking one or more of these medications: 1. Oxycodone - A quick and shorter-acting pain medication. Take one to two tablets every six hours to lessen your pain. 2. Aspirin - Thins your blood to lessen the chance of forming a blood clot. * The most common side effects of pain medicine and iron are nausea and constipation. If nausea or constipation is too much of a problem or if you have any questions about your new medicines or doses, call [facility] at . We will try to help you manage these issues. "VERY IMPORTANT TO READ AND REVIEW" Pain: * The immediate post-operative period after knee replacement surgery is often quite painful. * You are given a prescription for pain medicine. You should take it, as directed, when you need it, especially before physical therapy and before going to bed. Pain that interferes with sleep is very common and can last several months. * You will likely need pain medicine for the first four to six weeks. It will not stop all of the pain. The pain will lessen and as you feel better, you may change to milder pain medicine such as Tylenol. * The most common side effects of pain medicine are nausea and constipation, so don't take more than you need. SPECIAL CARE INSTRUCTIONS: TEDs/Elastic Stockings: * The white elastic stockings help limit swelling and prevent blood clots from forming in your legs. The more you wear them, the more they work. * Wear them for six weeks after knee replacement surgery and four weeks after partial knee replacement. Incision Site Care: * Remove dressing postoperative day 2 and then shower. Keep direct shower pressure off the incision site. * After showering, cover miguel with dry gauze and change daily or more frequently if the dressing is getting saturated with drainage. * Use the PHUONG stockings to hold dressing in place. DO NOT apply tape on the skin. * May completely stop using bandage if wound is dry and no drainage * Miguel are removed between 2 and 3 weeks post-op. If your follow-up appointment is made before 2 weeks, please have your appointment re- scheduled. It is too early to remove the miguel. Prevention of Infection: * Take antibiotics one hour before any dental cleaning, dental work, urological procedure, gastrointestinal procedure or any invasive surgery in order to prevent your new joint from getting infected. * You may get the antibiotics from the doctor performing the procedure or you may call our office at [phone] before and we will call in a prescription to the pharmacy of your choice. Things to Watch For: * Drainage from the incision site that occurs more than one week after your surgery. * Severely increased knee/leg pain or swelling. * Increased redness at the incision site. * Fever above 102 degrees Fahrenheit. * Unusual chest pain or shortness of breath. * Unusual pain or burning with urination. Call [facility] at [phone] with any of the above problems or if you have any questions about your medicines or recovery. FOLLOW UP VISIT: Make an appointment to see your doctor for approximately two weeks after surgery for a progress check and staple removal by calling the office at [phone]. Pending Studies at Discharge: No Stand-Alone Forms: Common Interest Communities, Smoking Cessation Medications and DC Order Prescriptions: New acetaminophen [Tylenol Extra Strength] 500 mg Tablet 1,000 mg PO Q8 30 Days Qty: 180 0RF Rx Instructions: Take 3 times per day to lessen pain aspirin 81 mg Tablet,Delayed Release (Dr/Ec) 81 mg PO BID 45 Days Qty: 90 0RF Rx Instructions: TAke to prevent blood clots oxycodone 5 mg Tablet 5 mg PO Q4H PRN (Reason: pain) Qty: 30 0RF Rx Instructions: Take as needed for pain. Continued folic acid 1 mg Tablet 1 mg PO QAM prednisone 1 mg Tablet 1 mg PO Q OTHER DAY Amino Acid Synergy 1 cap PO UD Patient Comments: take prior to surgery and post-op atorvastatin 10 mg Tablet 10 mg PO QAM calcium citrate-vitamin D3 1 dose PO BID Rx Instructions: 1 tablet twice daily levothyroxine 100 mcg Tablet 100 mcg PO QAM ergocalciferol (vitamin D2) [Vitamin D2] 1,250 mcg (50,000 unit) Capsule 1,250 mcg PO WK Patient Comments: saturdays Discharge Orders: Discharge Order (Routine); Ordered 06/16/23 Ordered By: Oscar Das Admission Data Admit Date/Time: 06/13/23 08:39 Attending Provider: Deepak Yoon Admit Provider: Deepak Yoon Primary Care Provider: Reji Mendoza Other Providers: [facility]; [place],[facility]; [facility]
[2023-06-19] MEDS ORDERED: ERGOCALCIFEROL 1250 MCG (50,000 UNITS) CAP PO SCH (09:00)
== END 2023-06-16 15:39 | disposition home health service (06) | DRG 470 ==
LOC: ASU 05:01 → 3W 08:39